=== PATIENT | male | born 1980 | race Caucasian/White ===

== ENCOUNTER 2018-10-05 19:07 | Inpatient (IN) | payer OTHER ==
[~2018-10-05] VITALS: Ht 172.7 cm; Wt 77.8 kg
--- NOTE | 2018-10-06 00:34 | NUR ---
GOT A CALL FROM RADIOLOGY AND WAS INFORMED THAT PER DR. ALIYAH DE JESUS THE NG TUBE HAS GOOD PLACEMENT AND READY FOR USE.
--- NOTE | 2018-10-06 01:45 | NUR ---
PATIENT'S BROTHER IS HERE DROPPING OFF SOME CLOTHES. PATIENT NG TO ILWS WITH SLIGHT CLEAR DRAINAGE. PATIENT VOIDED 400MLS PER URINAL. ABD TENDER AND DISTENDED. RARE BOWEL TONES. CONFIRMED PLACEMENT OF NG WITH SYRINGE AND SMALL AMOUNT OF AIR. ABD PAIN 4/10 AND GIVEN 0.5MG DILAUDID IV. BOLUS IS DONE AND D5NS RUNNING AT 125MLS/HR NOW. CALL LIGHT IN REACH. BED ALARM ON.
--- NOTE | 2018-10-06 03:05 | NUR ---
PATIENT SAYS PAIN IS UNDER CONTROL AND HE HAS BEEN ABLE TO GET SOME SLEEP. CALL LIGHT IN REACH. VS STABLE.
--- NOTE | 2018-10-06 05:32 | NUR ---
PATIENT REMAINS CONNECTED TO ILWS PER NG TUBE. VERY LITTLE CLEARISH DRAINAGE FROM NG. PATIENT HAS BEEN FEELING BETTER. PAIN IN THE ABD HAS NOT BEEN ABOVE A 4/10. DID GET 0.5MG IV DILAUDID FOR THAT ABD PAIN WHICH ALLOWED PATIENT TO SLEEP. BROTHER DROPPED OF PERSONAL ITEMS. PATIENT USING URINAL. IV INFUSING AND WNL. SCD'S PLACED. PATIENT RESTING QUIRTLY EYES CLOSED CALL LIGHT IN REACH. O2 SATS CURRENTLY 95% ON RA WITH A HR=70.
--- NOTE | 2018-10-06 07:43 | NUR ---
Pt sleeping at this time, resp even and non labored. Pt appears comfortable, no s/s of distress noted. Personal supplies and call light within reach.
--- NOTE | 2018-10-06 09:59 | NUR ---
PATIENT RESTING IN BED. WARM WASHCLOTH OFFERED. CALL LIGHT IN REACH. NO FURTHER NEEDS AT THIS TIME.
[2018-10-06] MEDS ORDERED: KEFLEX500 MG PO (12:08)
--- NOTE | 2018-10-06 13:09 | NUR ---
[facility]ED [facility] NOTES TO [facility] INCLUDING FACE SHEET, ER NOTES AND SUMMARY, H AND P, PROG NOTE. RECIEVED FAX CONFIRMATION. TALKED WITH JERRY CASE MANAGEMENT AT [facility].
--- NOTE | 2018-10-06 13:50 | NUR ---
PT FAST ASLEEP. WILL CHECK BACK AGAIN
--- NOTE | 2018-10-06 14:35 | NUR ---
AGAIN TALKING TO THE [facility] ATTEMPTING TO GET A HOLD OF THE PT PCP--LILY GARZA SPLICER OPERATOR. TOLD THAT SHE IS OUT ON [facility] LE[facility] AND DR SUAREZ OFFICE COVERING. GOT TRANSFERED TO THAT OFFICE, TALKED WITH ESTEFANIA AND SHE WAS ABLE TO GET ME HOOKED UP WITH ELIZABETH DAN RN, AT DR SUAREZ OFFICE. ON THE PHONE WITH HER FOR 40 MINUTES AND BASICALLY WHAT SHE SAID SPEAKING THE RN FOR THE CONSULT MANAGEMENT TEAM THAT THEY CANNOT PREAUTHORIZE PAYMENT FOR THIS SURGERY, HOWEVER IF IT WERE EMERGENT OR LIFE THREATENING SHE SAID TO TELL THE VET TO HAVE THE SURGERY AND WORRY ABOUT IT LATER. SHE STATED THAT THE VET IS 30% SERVICE CONNECTED POSS RELATED TO THIS WITH IRRITABLE BOWELS. SHE SUGGESTED THE PT SHOULD/ COULD REQUEST A TRANSFER TO [facility] FOR THE SURG--IF THEY HAVE NO BED OR WON'T TAKE HIM THEN TO HAVE SURG HERE AND MORE THAN LIKELY THEY WOULD COVER THE COST OF IT. [address] ROMERO AND EXPLAINED THIS TO HIM.
--- NOTE | 2018-10-06 15:40 | NUR ---
ADMIN DILAUDID 0.5MG IVP FOR 5/10 ABD PAIN.
--- NOTE | 2018-10-06 16:36 | NUR ---
TALKED WITH PT ABOUT THE STATEMENT HE MADE TO DR ROMERO THAT SURGERY WOULD HAVE TO BE AUTHORIZED THROUGH THE [facility]. EXPLAINED THE CONVERSATION I HAD WITH THE [facility], ELIZABETH DAN RN CONSULT MANAGEMENT TEAM, AND THAT SHE HAD LEARNED THAT EVEN GOING THROUGH DR AGEE, THE [facility] WILL NOT PREAUTH PROCEDURES WHEN YOUR AN INPT. I EXPLAINED THAT THEY SAID HE COULD HAVE THE SURG HERE BUT THEY COULDN'T GUARANTEE PAYMENT FOR IT. ALSO SUGGESTED BY ELIZABETH THAT THE PT REQUEST A TRANSFER TO [facility] FOR THE SURGERY. IF BED SPACE AVAILABLE HE COULD GO THERE, OR IF NOT HE COULD STAY HERE AND HAVE THE SURGERY, BUT SHE STILL COULD NOT GUARANTY VA PAYMENT. HE SAID HE WOULD THINK ABOUT IT AND TALK WITH DR ROMERO WHEN HE COMES IN TO SEE HIM. TOLD PT IF HE HAS QUESTIONS HE COULD JUST ASK FOR DISCHARGE PLANNING.
--- NOTE | 2018-10-06 17:01 | NUR ---
PT A&OX3. RA. CHLOE QUIROGA. [id number]. SURGERY PLANNED FOR TOMORROW AM AROUND 10. DILAUDID 0.5MG IVP FOR PAIN. AMBULATED INDEPENDENT.
--- NOTE | 2018-10-06 18:07 | NUR ---
ADMIN DILAUDID 0.5MG IVP FOR REPORTS OF 5/10 ABD PAIN.
--- NOTE | 2018-10-06 19:54 | NUR ---
PATIENT RESTING QUIETLY IN SEMI-FOWLERS POSITION. NG TUBE STILL TO LWIS.EYES CLOSED, RESPIRATIONS REGULAR AND EVEN. CALL LIGHT IN REACH.
--- NOTE | 2018-10-06 21:24 | OR ---
[facility] [address] [place], [place] [address] Signed DATE OF OPERATION: 10/05/2018 SURGEON: Tae Romero MD PREOPERATIVE DIAGNOSIS: Advanced small bowel obstruction, need for physician placed nasogastric tube. POSTOPERATIVE DIAGNOSIS: Advanced small bowel obstruction, need for physician placed nasogastric tube. PROCEDURE PERFORMED: physician required placement of right nasogastric tube for decompression of stomach. ANESTHESIA: Topical lidocaine jelly. INDICATIONS: This 38-year-old white man has recurrent small bowel obstruction and massively distended stomach, at least the size of his liver. He has had difficulty with nasogastric tube placement in the past apparently. On that basis, a physician-directed placement of a tube is recommended. FINDINGS: The choanal aperture was somewhat narrow, but was negotiated with time and patience. The tube was placed without problem into the stomach. Immediately prior to placement of tube, he had regurgitation of 1.4 L of gastric contents. The nasogastric tube was functional at conclusion of its placement and chest x-ray confirmed this tube to be in the stomach. DESCRIPTION OF PROCEDURE: In the upright position with the patient relaxed, a 16-Macedonian nasogastric tube was gently curved at the tip and application of lidocaine jelly undertaken. Passage of the tube into the choanal aperture showed resistance. With a considerable amount of patience and care, ultimately this could be negotiated passing the tube beyond the soft palate. The patient was instructed to hold a mouthful of water through the straw and as instructed, when swallowing the tube was passed further. Several further swallows were undertaken to guide the nasogastric tube atraumatically into the stomach. Aspiration of the stomach once tube was at the predetermined marker showed some gastric contents. This was secured in place with care taken to avoid excessive alar pressure on the tube. A postprocedure Electronically Signed By: TAE ROMERO MD 10/06/18 2124 PATIENT NAME: ESTEPHANIA MERCHANT OPERATIVE REPORT DATE OF : 80 REPORT #: [id number] PHYSICIAN: TAE ROMERO MD PCP: LILY GARZA REPORT IS CONFIDENTIAL AND NOT TO BE RELEASED WITHOUT AUTHORIZATION [address] [address] Signed chest x-ray confirmed the tube to be in the stomach. MD DEREK Carrillo/AIDAN /[id number] Copies: ~ Electronically Signed By: TAE ROMERO MD 10/06/18 2124 PATIENT NAME: ESTEPHANIA MERCHANT OPERATIVE REPORT DATE OF : 80 REPORT #: [id number] PHYSICIAN: TAE ROMERO MD PCP: LIYL GARZA REPORT IS CONFIDENTIAL AND NOT TO BE RELEASED WITHOUT AUTHORIZATION
--- NOTE | 2018-10-06 21:24 | HP ---
[facility] [address] [place], [place] [address] Signed ADMISSION DATE: 10/05/2018 REASON FOR ADMISSION: Recurrent small bowel obstruction. HISTORY OF PRESENT ILLNESS: This 38-year-old white man is in [employer] and [place] [employer] [place] he lives in [place]. He presented to the emergency room with abdominal pain, distention, and findings consistent with recurrent bowel obstruction. His history goes back to about 2006 at which time he underwent Meckel diverticulectomy by laparoscopic technique at the [facility] in [place]. He said the [facility] professor was the operating surgeon. Within the 1st year, he had recurrent problems of abdominal pain, distention, and so forth. By 2010, he had an episode of bowel obstruction once again for which an exploration was undertaken for adhesion, but no adhesions were identified. In August of this year, he was noted to have abdominal pain and distention and bowel obstruction and was admitted at [facility] in [place], where he underwent nasogastric tube decompression for approximately 4 days with ultimately spontaneous recovery of the bowel obstruction. The patient had his images from obstruction reviewed apparently at the [facility] in [place] and he tells me the watcher lookout tower happened to call him today upon review of his situation recommending a MRI enterography. He presented today with his distention and a CT scan was performed, which shows small bowel obstruction and markedly distended stomach and obstruction appears to be at the anastomotic area, where multiple flako are noted. He is admitted for further evaluation and care noting an elevated white count greater than 14,000. PAST MEDICAL HISTORY: Significant only for ankle surgery in the past with metal plating. MEDICATIONS: The patient takes no medications on a routine basis. ALLERGIES: There are no known drug allergies. Electronically Signed By: TAE ROMERO MD 10/06/18 2124 PATIENT NAME: ESTEPHANIA MERCHANT HISTORY AND PHYSICAL DATE OF : 80 REPORT #: [id number] PHYSICIAN: TAE ROMERO MD PCP: LILY GARZA REPORT IS CONFIDENTIAL AND NOT TO BE RELEASED WITHOUT AUTHORIZATION [facility] [address] [place] [id number] Signed SOCIAL HISTORY: Though he works in [place], he lives in [place]. He is single. He has no children. 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 REVIEW OF SYSTEMS: He denies any shortness of breath or chest pain. He has had no dysphagia or dysuria. Denies any hematemesis or blood per rectum. PHYSICAL EXAMINATION: GENERAL: Well-developed, well-nourished white man, who does not look systemically toxic. HEENT: Mucous membranes are quite dry. NECK: Trachea is midline. CHEST: Shows normal respiratory excursion without tachypnea. HEART: Regular without murmur. ABDOMEN: Distended, but not particularly tender. EXTREMITIES: Show no clubbing, cyanosis, or edema. LABORATORY STUDIES: Show a white count of 14.4, hematocrit of 46.6, platelets 290,000, neutrophils 86%. Chem profile shows normal electrolytes, potassium is 4.1, bicarb is 24, glucose 100. Bilirubin 0.5, liver enzymes normal, lipase 22. Urinalysis is pending, receiving in lab. Plain abdominal x-ray performed at 2000 hours shows possible bowel obstruction. Subsequent CT scan of abdomen and pelvis shows small bowel obstruction and distal small bowel anastomosis. ASSESSMENT AND PLAN: The patient has small bowel obstruction, which may or may not be nearly complete. He has elevated white count, but no actual tenderness or sign of toxicity. He certainly has dehydration and 3rd space losses and fluid resuscitation is needed. I have recommended nasogastric tube decompression as well though he dreads the concept based on his prior experience with it. I will personally pass the tube myself, as I think I can do this painlessly and with good effect. It is highly probable in my opinion that he has had recurrent bowel obstruction related to the anastomosis, essentially since beginning of the operation. Since a laparoscopic approach to his Meckel diverticulectomy was undertaken, it is uncertain if he had simply Meckel diverticulectomy proper or segmental resection with [id number] functional end-to-end anastomosis. Given the notable flako at the anastomotic line, I suspect the latter though either is possible. This recurrent obstructive process has been Electronically Signed By: TAE ROMERO MD 10/06/182123 PATIENT NAME: ESTEPHANIA MERCHANT HISTORY AND PHYSICAL DATE OF : 80 REPORT #: [id number] PHYSICIAN: TAE ROMERO MD PCP: LILY GARZA REPORT IS CONFIDENTIAL AND NOT TO BE RELEASED WITHOUT AUTHORIZATION [facility] [address] [place], [place] [address] Signed chronic and recurrent for many years, though he has had a few years of cessation of the problem, and it is likely a definitive solution to this problem would be necessary including segmental resection and probable end-to-end anastomosis though that would remain to be determined. I will try to get operative reports to better characterize his prior operations. In the meantime, we will plan for surgeon small bowel follow-through via the nasogastric tube tomorrow most likely depending on his clinical response to decompression fluid and so on. MD DEREK Carrillo/AIDAN /[id number] Copies: ~ Electronically Signed By: TAE ROMERO MD 10/06/18 2124 PATIENT NAME: ESTEPHANIA MERCHANT HISTORY AND PHYSICAL DATE OF : [birth year] REPORT #: [id number] PHYSICIAN: TAE ROMERO MD PCP: LILY GARZA REPORT IS CONFIDENTIAL AND NOT TO BE RELEASED WITHOUT AUTHORIZATION
--- NOTE | 2018-10-06 22:10 | NUR ---
PATIENT HAS C/O 5/10 ABD PAIN AND GIVEN 0.5MG IV DILAUDID SIVP.
--- NOTE | 2018-10-07 | NUR ---
PATIENT RESTING QUIETLY, EYES CLOSED, RESPIRATIONS REGULAR AND EVEN IN SEMI-FOWLERS POSITION. CALL LIGHT IN REACH. PATIENT APPEARS TO BE IN NO DISTRESS.
--- NOTE | 2018-10-07 02:00 | NUR ---
PATIENT RESTING QUIETLY, SEMI-FOWLERS PSITION. NG STILL SECURE IN PLACE TO LWIS. PATIENT'S EYES ARE CLOSED AND RESPIRATIONS ARE REGULAR AND EVEN. CALL LIGHT IN REACH.
--- NOTE | 2018-10-07 04:00 | NUR ---
PATIENT CALLED HAVING C/O 5/10 ABD PAIN AND NAUSEA. 12.5MG IV PHENERGAN GIVEN ON THE PUMP IN 20MLS NS AND 0.5MG DILAUDID GIVEN SIVP.
--- NOTE | 2018-10-07 05:23 | NUR ---
PATIENT RESTING QUIETLY NOW, EYES CLOSED, RESPIRATIONS REGUULAR AND EVEN, NO MORE C/O NAUSEA OR PAIN AT THIS TIME. NG TUBE STILL TO LOW WALL INTERMITTENT SUCTION WITH VERY LITTLE CLEARISH WHITE RETURN TO THE SUCTION CANISTER. IV INFUSING AND IV SITE WNL. PATIENT SAID EARLIER HE REALLY DID NOT WANT TO HAVE SURGERY TODAY UNTIL HE COULD SPEAK TO HIS GASTROINTEROLOGIST A DR.LACY Bennett AT THE [facility] AND TO TEAM JESÚSRY THAT TAKES CARE OF HIS MEDICAL NEEDS AT [facility]. PATIENT HAS BOWEL TONES NOW AND SAYS HE IS PASSING GAS, EVEN THOUGH HE HAS TAKEN NOTHING BY MOUTH AND IS NOW NPO SINCE MIDNIGHT POSSIBLE SURGERY TODAY.
--- NOTE | 2018-10-07 07:38 | NUR ---
0715: Bedside report recieved from Lonnie ROCHA. Pt laying in his bed and he states he is doing ok and is not in the need for anything. I asked the pt about surgery and he confirmed with me that he is not having surgery this morning per his request. The OR crew was called by the charge nurse and it was confirmed that they are aware of this.
--- NOTE | 2018-10-07 08:22 | NUR ---
TALKED WITH JERRY FROM [facility] REGARDING PT TRANSFER TO ANOTHER [facility] PER DR ROMERO REQUEST, SHE STATES HER OFFICE WILL WORK ON THE TRANSFER. FAXED UPDATED CLINICALS INCLUDING FACE SHEET, PROG NOTE, LABS, AND MED LIST.
--- NOTE | 2018-10-07 09:13 | NUR ---
RECEIVED A PHONE CALL FROM JERRY AT THE [facility] IN [place] REGARDING PT BEING TRANSFERRED FOR SURGICAL PROCEDURE, SHE STATES THAT THERE ARE NO BEDS AVAILABLE AT [facility], [address] [facility] BUT THEY ARE FILLING THAT BED AND [facility] HAVE NO BEDS AVAILABLE EITHER. HER RECOMMENDATION WAS TO HAVE THE PT IF NEEDED TO GO AHEAD AND HAVE THE SURGERY. TALKED WITH PT REGARDING THIS AND HE STATED HE JUST GOT OFF THE PHONE WITH HIS GI DR AND SHE IS RECOMMENDING TO THE PT TO HAVE A MRI-SPECIFIC FOR THIS PER THE GI DR. I TOLD HIM HE WOULD HAVE TO DISCUSS THIS WITH DR ROMERO AND TO MAKE HIS DECISION FROM THERE.
--- NOTE | 2018-10-07 09:18 | NUR ---
THE PT JUST SPOKE WITH ROSSY ROCHA IN REGARDS TO HER CONVERSATION SHE HAD WITH THE [facility]. PT STATES HIS PAIN LEVEL IS ACCEPTABLE AT THIS TIME AND HE HAS SOME MILD NAUSEA ALL THE TIME RELATED TO HAVING AN NG. NG TO LIWS AND IS DRAINING A SMALL AMOUNT OF CLEAR GREEN TINTED DRAINAGE. ESTEPHANIA DENIES ANY OTHER PROBLEMS AT THIS TIME.
--- NOTE | 2018-10-07 09:44 | NUR ---
TALKED TO DR ROMERO AND TOLD HIM MY FINDINGS OF THIS AM AND THAT I DISCUSSED THIS WITH THE PT. HE SAID HE WOULD DEAL WITH IT. I KEEP RECEIVING NOTICE FROM [facility] FAX THAT THE LINE IS BUSY WILL ATTEMPT TO FAX UPDATED CHART NOTES AGAIN.
--- NOTE | 2018-10-07 09:47 | NUR ---
RECEIVED NOTIFICATION THAT THE UPDATED NOTES TO THE VA FINALLY WENT THROUGH. RECEIVED THE FAX CONFIRMATION.
--- NOTE | 2018-10-07 10:33 | NUR ---
ESTEPHANIA JUST SPOKE WITH DR ROMERO AND STATES HE IS STILL UNSURE IF HE IS GOING TO HAVE SURGERY OR NOT AT THIS TIME. HE STATES THAT HE IS STILL THINKING ABOUT WHAT HE WANT'S TO DO. HE STATES HE HAS ABD PAIN RATED AT A 4/10 AND WAS MEDICATED ORDERED, SEE EMAR.
--- NOTE | 2018-10-07 11:15 | NUR ---
Upon checking up on the pt he states that he is doing okay. He is on the phone at this time so I will check back on him shortly.
--- NOTE | 2018-10-07 11:50 | NUR ---
Pt sleeping at this time.
--- NOTE | 2018-10-07 12:35 | NUR ---
Pt resting in his bed. He was encouraged to walk and he states that he will later in the day. He denies nausea at this time and remains on LIWS, bowel tones are active and he states he is passing gas. He rates his pain at a 1-2/10 and states it is acceptable.
--- NOTE | 2018-10-07 13:22 | NUR ---
Michael ambulated in the halls with nursing staff and walked 5 laps and he tolerated the walk well. Pt back to bed and his Cheri suction tube attachment device for his NG was replaced as it was started to lift up on the edges. Pt denies any new problems at this time.
--- NOTE | 2018-10-07 13:57 | NUR ---
PT ALERT, ORIENTED AND NOTICED NG IS DRAINING SMALL ABOUT OF GREEN LIQUID. PT VISITED WITH ME FOR A MOMENT, AND THEN MUST HAVE FELT COMFORTABLE ENOUGH TO SHARE WITH ME THE DILEMA HE FEELS HE IS IN. ACCORDING TO PT, DR ROMERO HAS RECOMMENDED SURGERY TO PT. DR NIXON CONSULTED PT'S [employer]INE[employer] SALES, AND ALSO TALKED TO PT. PT SO FAR HAS REFUSED SURGERY, AND FEELS THAT THE POSSIBLE AFTER EFFECTS OUT WEIGH THE BENEFITS OF SURGERY. HE APPARENTLY HAS BEEN THROUGH NUMEROUS HOPTILALIZATIONS, NG TUBES AND SURGERIES. HAD GOOD DEBRIEFING WITH PT, HE REQUESTED PRAYER. WILL FOLLOW NEEDED
--- NOTE | 2018-10-07 15:29 | NUR ---
PATIENT DID 5 LAPS AROUND MED/SURG. HE WANTS TO WALK MORE.
--- NOTE | 2018-10-07 18:12 | NUR ---
Pt resting in bed, he states he is doing "alright". NGT continues at [facility] and is putting out a scant amount of light green colored drainage this shift. SCD's are on and running.
--- NOTE | 2018-10-07 18:55 | NUR ---
Pt refused surgery for his SBO this am and is now undecided if he is going to go ahead with the surgery or not. The pt scheduled for a SBFT tomorrow at 0800. Pt remains of LIWS with his NGT which has put out 50 ml this shift and is marked on the unit. His pain has been well controled with one dose of Dilaudid this shift. ABD sounds are active and he states his is passing gas. He is NPO other than limited sips of water and ice chips.
--- NOTE | 2018-10-07 19:30 | NUR ---
SHIFT REPORT RECEIVED FROM RICHIE BANKS AT BEDSIDE. PT RESTING IN BED, EYES OPEN, RR WNL. NG TUBE TO WLIS, SECUREMENT DEVICE IN PLACE. PT APPEARS COMFORTABLE, DENIES NEEDS. CALL LIGHT IN REACH.
--- NOTE | 2018-10-07 20:30 | NUR ---
CHARGE NURSE ROUNDING NOTE: PT WALKING HALLWAYS 5X UP AND DOWN NURSING STATION AND BACK, NO C/O PAIN AT THIS TIME. BACK TO ROOM. NGT R NARE TO LIWS. NO N/V, TOLERATED WELL, NO REQUESTS
--- NOTE | 2018-10-07 22:20 | NUR ---
ASSESSMENT COMPLETE, SCHEDULED MEDICATIONS ADMINISTERED (SEE EMAR). PT RESTING IN BED, ON RA. VSS. NG TUBE TO WLIS, NASAL SECUREMENT DEVICE IN PLACE. PT DENIES NAUSEA, REPORTS 4/10 PAIN. WILL ADMINISTER PRN PAIN MEDICATION PER PT REQUEST. IV FLUIDS INFUSING PER MD ORDERS, IV SITE WNL. PT DENIES ADDITIONAL NEEDS. CALL LIGHT IN REACH.
--- NOTE | 2018-10-07 23:40 | NUR ---
REPORT GIVEN TO ANASTACIA RN AT BEDSIDE. ANASTACIA TO TAKE OVER CARE OF PT FOR REMAINING OF SHIFT. ALL QUESTIONS ANSWERED.
--- NOTE | 2018-10-07 23:40 | NUR ---
TAKEN REPORT ANIKA MOCTEZUMA RN. PATIENT GIVEN 0.5MG IV DILAUDID SIVP FOR ABD PAIN 07/21. PATIENT DENIES NAUSEA AND IS PASSING GAS. JUST VOIDED 500MLS PER URINAL. ASCULTATION OF NG TUBE PLACEMENT HEARD IN THE REGION OF THE STOMACH WITH 30MLS AIR INJECTED AND HOKED BACK TO ILWS WHICH IS SLIGHTLY GREEN IN COLOR. IV INFUSINF AND WNL. PATIENT NOW RESTING ON HIS RIGHT SIDE, EYES CLOSED, CALL LIGHT IN REACH. PATIENT HAS STILL NOT TAKEN ANYTHING PO. NO OTHER NEEDS AT THIS TME. LIGHTS TURNED BACK DOWN.
--- NOTE | 2018-10-08 02:01 | NUR ---
NEW BAG OF FLUIDS HUNG AND INFUSING PER MD ORDERS. PUMP CLEARED. PRIMARY RN ANASTACIA AWARE.
--- NOTE | 2018-10-08 04:10 | NUR ---
PATIENT RESTING QUIETLY ON HIS RIGHT SIDE, NG IN PLACE, IV INFUSING AND WNL. EYES CLOSED RESPIRATIONS REGULAR AND EVEN. CALL LIGHT IN REACH.
--- NOTE | 2018-10-08 05:28 | NUR ---
PATIENT HAS RESTED WITH EYES CLOSED MOST OF THE NIGHT WITH REGULAR AND EVEN RESPIRATIONS. PATIENT IS CURRENTLY UP WALKING THE HALLS FOR EXERCISE. NG IN PLACE PER ASCULTATION WITH AIR. PATIENT HAS HAD A COUPLE EPISODES OF NAUSEA AND WAS MEDICATED WITH PROMETHAZINE 12.5MG IN 20MLS NS AND 0.5MG DILAUDID WHEN NEEDED FOR PAIN WHICH HAS NEVER GONE ABOVE 5/10. PATIENT WILL HAVE A SMALL BOWEL FOLLOW THOUGH TODAY AND IT IS UNDETERMINED WHETHER PATIENT WILL HAVE SURGERY TODAY OR NOT.
--- NOTE | 2018-10-08 07:30 | NUR ---
BEDSIDE REPORT RECIEVED FROM ANASTACIA ROCHA. PT LYING IN BED AND HE DENIES ANY PROBLEMS AT THIS TIME. HIS SCD'S ARE ON AND RUNNING, NGT TO LIWS AND IV OF D5LR AT 125. CALL LIGHT IS WITHIN REACH.
--- NOTE | 2018-10-08 08:06 | NUR ---
The pt has been taken from the floor by the x-ray dept for the pt to receive his SBFT. The iv has been SL and the NGT has been clamped.
--- NOTE | 2018-10-08 09:31 | NUR ---
0920: PT RETURNED TO HIS FOOM FOR THE X-RAY DEPT FOR WHICH THEY STATE HE NEEDS TO GO BACK AT 1000. THE NGT WAS LEFT CAPPED REQUESTED. VSS.
--- NOTE | 2018-10-08 09:42 | NUR ---
PT LYING IN BED WITH NO COMPLAINTS OF PAIN OR NAUSEA. HE DOES COMPLAIN THAT HE DOES NOT LIKE THE NGT HOWEVER BUT UNDERSTANDS IT PURPOSE. NGT IS CLAMPED AWAITING HIS RETURN TO THE SBFT. VSS AND NO NEW PROBLEMS AT THIS TIME.
--- NOTE | 2018-10-08 10:30 | NUR ---
PATIENT AND I WALKED EIGHT LAPS AROUND MED SURG. I ASKED HIM HOW ARE YOU FEELING AND HE SAID FINE.
--- NOTE | 2018-10-08 10:35 | NUR ---
Pt complete with his SBFT and he requested to go for a walk and is doing so with a SBA at this time. NG will be returned to suction once his walk is completed.
--- NOTE | 2018-10-08 11:09 | NUR ---
Pt's ng tube is to LIWS. He denies any pain or nausea at this time.
--- NOTE | 2018-10-08 11:14 | NUR ---
Pt states he had a normal BM which he had flushed.
--- NOTE | 2018-10-08 11:24 | NUR ---
NG suction removed as requested by x-ray. They state they will call and notify us when it can be restarted.
--- NOTE | 2018-10-08 11:54 | NUR ---
X-RAY DEPT CALLED AND THEY STATE THEY ARE COMPLETE WITH THE SBFT. NT RETURNED TO [facility]. PT DENIES ANY OTHER PROBLEMS.
--- NOTE | 2018-10-08 13:24 | NUR ---
PT SITTING IN HIS CHAIR AND STATES HE HAS NO NAUSEA OR PAIN. VSS. NG TO ALEXANDER.
--- NOTE | 2018-10-08 14:19 | NUR ---
PATIENT AMBULATING IN HALLWAY, ONE PERSON ASSISTING
--- NOTE | 2018-10-08 14:32 | NUR ---
NGT PULLED ORDERED. PT HAD A SLIGHT BLOODY NOSE IN THE RIGHT KEYS WHERE THE NGT WAS PULLED FROM. DR ROMERO TO BEDSIDE AT THIS TIME. PT GIVEN A GLASS OF ICE WATER AND A CLEAR LIQUID DIET WAS ORDERED AND THE KITCHEN WAS CALLED AND REQUESTED TO BRING ONE TO THE PT.
--- NOTE | 2018-10-08 17:05 | NUR ---
Pt resting in his bed and just finished eating/drinking his clear liquid dinner which he had about 80% of the meal. He denies any nausea of abd pain after eating.
--- NOTE | 2018-10-08 17:16 | NUR ---
PT DID WELL TODAY, HAD A SBFT AND HIS NGT WAS DC'D. DIET ADVANCED AFTER THE NGT WAS REMOVED AND HE TOLERATED A CLEAR LIQUID DIET WELL. VSS AND HE DENIES ANY PAIN OR NAUSEA SINCE THE NG WAS REMOVED AND AFTER HE ATE.
--- NOTE | 2018-10-08 18:54 | NUR ---
PT CONTINUES TO DENIE ANY ABD PAIN OR NAUSEA.
--- NOTE | 2018-10-08 18:57 | NUR ---
PATIENT SAID HE WOUULD TAKE A SHOWER TOMORROW. I SET HIM UP FOR A SHOWER IN CASE HE CHANGES HIS MIND AND WANTS TO TAKE ONE LATER TONIGHT.
--- NOTE | 2018-10-08 19:00 | NUR ---
SHIFT REPORT RECEIVED FROM DAYSILANTHONY BANKS AT BEDSIDE. PT AWAKE AND RESTING IN BED. NO NEEDS AT THIS TIME, CALL LIGHT IN REACH. PT APPEARS COMFORTABLE.
--- NOTE | 2018-10-08 21:00 | NUR ---
PT AMBULATING INDEPENDENTLY IN HALLWAY.
--- NOTE | 2018-10-08 21:31 | NUR ---
VITALS AND I&OS DONE AND CHARTED. FRESH ICE WATER GIVEN. BEDSIDE TABLE AND CALL LIGHT IN REACH. PT NEEDS NOTHING MORE AT THIS TIME.
--- NOTE | 2018-10-08 21:45 | NUR ---
ASSESSMENT COMPLETE, SCHEDULED MEDICATIONS ADMINISTERED (SEE EMAR). PT A/OX4, DENIES PAIN AND NAUSEA. VSS, PT ON RA. IV FLUIDS INFUSING PER MD ORDERS, IV SITE WNL. PT DENIES NEEDS. CALL LIGHT IN REACH.
--- NOTE | 2018-10-08 22:28 | NUR ---
PT IN BED RESTING, CHICKEN BRTH AT BEDSIDE. PT DENIES NAUSEA OR ABDOMINAL PAIN AT THIS TIME. NO NEEDS, CALL LIGHT IN REACH. IV FLUIDS INFUSING PER MD ORDERS, IV SITE WNL.
--- NOTE | 2018-10-09 00:25 | NUR ---
PT RESTING IN BED, EYES CLOSED, RR WNL. PT APPEARS COMFORTABLE, NO DISTRESS NOTED. CALL LIGHT IN REACH.
--- NOTE | 2018-10-09 02:32 | NUR ---
ASSESSMENT COMPLETE, NO NEW CONCERNS OR CHANGES. PT DROWSY FROM SLEEPING, AWAKENS EASILY. NEW BAG OF IV FLUIDS HUNG PER MD ORDERS, IV SITE WNL. PT DENIES PAIN AND NAUSEA, BOWEL TONES ACTIVE. URINAL EMPTIED, 400 MLS OUTPUT RECORDED. NO NEEDS, CALL LIGHT IN REACH.
--- NOTE | 2018-10-09 04:42 | NUR ---
PT HAD VERY UNEVENTFUL NIGHT. AMBULATED INDENPENDENTLY IN HALLWAY. A/OX4, DENIED PAIN. D5LR @100 MLS/HR, IV SITE WNL. PT DENIED NAUSEA, BOWEL TONES ACTIVE. VOIDING QS, NO BM THIS SHIFT. USES CALL LIGHT APPROPERIATELY, TENATIVE DISCHARGE TODAY.
--- NOTE | 2018-10-09 05:48 | NUR ---
PER MD ORDERS, DIET ADVANCED FROM CLEAR LIQUID TO FULL LIQUID. PT HAD NO NAUSEA OR VOMITING THIS SHIFT.
--- NOTE | 2018-10-09 05:56 | NUR ---
VITALS AND I&OS DONE AND CHARTED. GARBAGES EMPTIED. FRESH ICE WATER GIVEN. BEDSIDE TABLE AND CALL LIGHT IN REACH. PT NEEDS NOTHING MORE AT THIS TIME.
--- NOTE | 2018-10-09 07:31 | NUR ---
REPORT RECEIVED FROM AJ MOCTEZUMA. PT RESTING ON LEFT SIDE WITH EYES CLOSED. RESPIRATIONS EVEN AND UNLABORED. BED RAILS UP. CALL LIGHT WITHIN REACH. FULL LIQUID TRAY ORDERED FOR PT FOR BREAKFAST.
--- NOTE | 2018-10-09 09:14 | NUR ---
MORNING ASSESSMENT AND MEDICATIONS DUE. PT SITTING UP IN BED FINISHED WITH FULL LIQUID BREAKFAST. PT DENIES PAIN AND NAUSEA. PT REPORTS A BM YESTERDAY. PT ADVANCED TO LOW FIBER DIET PER MD ORDER. PT PLANING TO TAKE A SHOWER LATER THIS MORNING. NO ADDITIONAL REQUESTS OR COMPLAINTS. CALL LIGHT WITHIN REACH. BED RAILS UP.
--- NOTE | 2018-10-09 09:35 | NUR ---
PT CALL LIGHT ON. PT REQUESTS A SHOWER. PIV SALINE LOCKED AND COVERED FOR SHOWER. PT UP INDEPENDANTLY FOR SHOWER. PT DEMONSTRATES USE OF CALL LIGHT. NO ADDITIONAL REQUESTS OR COMPLAINTS.
--- NOTE | 2018-10-09 10:20 | NUR ---
PT FINISHED WITH SHOWER. PIV ASSESSED, WNL. IV FLUIDS RESTRATED. PT SITTING ON EDGE OF BED, WATCHING MOVIES ON PHONE. PT DENIES PAIN AND NAUSEA AND IS HOPING FOR DISCHARGE LATER TODAY. NO ADDITIONAL REQUESTS OR COMPLAINTS. CALL LIGHT WITHIN REACH.
--- NOTE | 2018-10-09 10:37 | NUR ---
PATIENT SITTING UP IN BED. I&O DONE. VITAL SIGNS DONE BY RN. CALL LIGHT WITHIN REACH. NO OTHER NEEDS AT THIS TIME
--- NOTE | 2018-10-09 13:00 | NUR ---
THIS RN TO ROOM TO CHECK ON PT. PT FINISHED WITH LUNCH AND DENIES PAIN AND NAUSEA. PT STATES HE IS READY TO GO HOME. DISCHARGE CHARGE INSTRUCTIONS REVIEWED WITH PT. PT VERBALIZES UNDERSTANDING AND STATES HIS QUESTIONS HAVE BEEN ANSWERED. PIV DC'D PER PROTOCOL. GAUZE AND COBAN APPLIED. PT UP TO DRESS SELF, PT STEADY ON FEET AND CONTINUES TO DENY PAIN AND NAUSEA. VITAL SIGNS TAKEN. PT WHEELED FROM UNIT WITH BELONGINGS. SAFE ACCESSED TO OBTAIN ADDITIONAL PERSONEL BELONGS. NO ADDITIONAL QUESITONS, CONCERNS, OR COMPLAINTS.
--- NOTE | 2018-10-09 13:24 | NUR ---
PATIENT RESTING IN BED. RN IN ROOM. VITAL SIGNS AND I&O DONE. CALL LIGHT WITHIN REACH. NO OTHER NEEDS AT THIS TIME
--- NOTE | 2018-10-10 13:33 | DS ---
[facility] [address], [place] [address] Signed ADMISSION DATE: 10/05/2018 DISCHARGE DATE: 10/09/2018 REASON FOR ADMISSION: This 38-year-old white man, he is in the [employer] [place], though he lives in [place], [place]. He presented to the emergency room with abdominal pain, distention, findings consistent with recurrent bowel obstruction. He is admitted for further evaluation and care. His prior history goes back to 2004 or 2006, at which time he had chronic abdominal pain, he was thoroughly evaluated including capsule endoscopy, which showed a Meckel diverticulum indeed the capsule was entrapped in the Meckel diverticulum. He underwent laparoscopic segmental resection of the Meckel diverticulum (presumably) and has had recurrent bouts of bowel obstruction since that time. He has gone several years without any problems, but was admitted to the hospital only 3 weeks ago to [facility] in [place] where he had a bowel obstruction, requiring nasogastric tube decompression. He ultimately had spontaneous recovery of the obstruction. The patient has been evaluated by the [facility] for this problem including the medical claims manager, Dr. Becerra, who had previously recommended an MRI enterography to better characterize the process. The patient is admitted for further evaluation and care for small-bowel obstruction. HOSPITAL COURSE: The patient was very resistent to the idea of nasogastric decompression given the difficulty he had with it previously. I placed the 16 Fr nasogastric tube myself without problem, which allowed for decompression of at least 1.5 L of gastric contents. He showed persistence of his obstruction clinically. Abdominal x-rays and so forth did show improvement. A plan for small-bowel follow-through was made, however, the radiologist was hesitant given his ongoing significant symptoms and that the CT scan showed obvious obstruction at the previous anastomotic site. On that basis, the small bowel follow-through was canceled. I was advised by Dr. Neal of the [place] system regarding the patient's eligibility for further care at this hospital. My discussion with Dr. Neal was fruitful and Dr. Neal Electronically Signed By: TAE ROMERO MD 10/10/18 1333 PATIENT NAME: ESTEPHANIA MERCHANT DISCHARGE SUMMARY DATE OF : 80 REPORT #: [id number] PHYSICIAN: TAE ROMERO MD PCP: LILY GARZA REPORT IS CONFIDENTIAL AND NOT TO BE RELEASED WITHOUT AUTHORIZATION [facility] [address] [place] [address] Signed had a good understanding of the problem and my recommendation for exploration and likely resection of the anastomotic area, which has caused recurrent problems. It was ultimately determined that there was no [facility] with the ability to take him on tranfer and on that basis a plan for surgery was outlined for October 07. The patient then refused to proceed with surgery. He spoke with his medical claims manager in [place] at the [facility] (Dr. Becerra). I subsequently spoke with Dr. Becerra and myself reviewing the case with her. She concurred that ongoing obstruction should be addressed by surgical methods if needed. The patient still refused to proceed with operative intervention. On that basis, a plan was outlined for small-bowel follow-through afterall to assess for ongoing obstruction. This was performed, which showed no complete obstruction at this point. Since the patient declined surgical intervention, the nasogastric tube was removed and a trial of clear liquids was undertaken. He tolerated this and full liquids and is anticipating a low-fiber diet for the time being. By the time of discharge, he appears to be doing well. I believe his propensity for another obstruction at the anastomotic site is high, and he understands this. It is probable that surgical intervention will one day be accepted by the patient. Most likely, this will be in the [facility], however. He is advised at discharge to avoid large fibrous food boluses in oral intake. I would not expect him to necessarily be on a low-fiber diet, long-term, nor would I advocate such a thing. However on the short-term, a low-fiber diet may be prudent. Followup plans: he will return for further evaluation and consideration to the [facility] in [place]. His primary provider is a mid-level nurse practitioner, who is now on maternity leave, but he assures me that [facility] will be familiar with his situation. I am sure that would be ongoing consultation with his medical claims manager in [place], Dr. Becerra. DISCHARGE MEDICATIONS: None. DISCHARGE DIAGNOSES: 1. Recurrent small-bowel obstruction at the site of previous small bowel anastomosis. 2. History of Meckel diverticulectomy with laparoscopic resection and anastomosis probably [id number] functional end to end ileo-ileostomy in 2004. 3. Recurrent bowel obstruction with laparoscopy showing minimal intraabdominal adhesions, some adhesions at anastomotic site. Electronically Signed By: TAE ROMERO MD 10/10/18 1333 PATIENT NAME: ESTEPHANIA MERCHANT DISCHARGE SUMMARY DATE OF : 80 REPORT #: [id number] PHYSICIAN: TAE ROMERO MD PCP: LILY GARZA REPORT IS CONFIDENTIAL AND NOT TO BE RELEASED WITHOUT AUTHORIZATION [address] [place], [place] [address] Signed 4. Recent recurrent small-bowel obstruction, treated nonoperatively at [place], [place]. MD DEREK Carrillo/AIDAN /[id number] cc: Department of Gastroenterology [place], [place] [facility] Dr. Becerra Copies: ~ Electronically Signed By: TAE ROMERO MD 10/10/18 1333 PATIENT NAME: ESTEPHANIA MERCHANTL DISCHARGE SUMMARY DATE OF : 80 REPORT #: [id number] PHYSICIAN: TAE ROMERO MD PCP: LILY GARZA REPORT IS CONFIDENTIAL AND NOT TO BE RELEASED WITHOUT AUTHORIZATION
== END 2018-10-09 13:45 | disposition home or self-care (01) | DRG 390 ==
LOC: ED 19:07 → MS 19:08 → ED 19:08 → MS 19:08
PROVIDERS: ADMIT Surgery
PROC: 0D9670Z Drainage of Stomach with Drainage Device, Via Natural or Artificial Opening (ICD-10-PCS; principal; 2018-10-05)
DX: K56.699 Other intestinal obstruction unspecified as to partial versus complete obstruction (principal); E86.0 Dehydration
CPT/HCPCS: 36415; 71045; 74018; 74022; 74177; 74250; 80053; 81001; 83690; 85025; 94760; 99285-25; J0131; J1170; J1644; J2405; J2550; J7030; J7120

== ENCOUNTER 2019-02-17 12:23 | Inpatient (IN) | payer OTHER ==
[~2019-02-17] VITALS: Ht 172.7 cm; Wt 77.8 kg
--- NOTE | ~2019-02-17 | DS ---
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 This was at [facility]. Since that time, he has had episodic bowel obstructions, all of them likely related to the anastomotic site itself. A plan for segmental resection of this abnormality was outlined by me for the next several weeks, but he presented to the emergency room and with a recurrent bowel obstruction was admitted by Dr. Tong, the on-call surgeon on February 17, again showing a small-bowel obstruction likely associated with the anastomotic area from the past. He is admitted for further evaluation and care. PHYSICAL EXAMINATION: VITAL SIGNS: At admission showed a blood pressure 142/85, heart rate 75, respiratory rate 16, temperature 98.4, O2 saturation on room air 96%. LUNGS: Clear. HEART: Regular rate and rhythm. ABDOMEN: Mildly distended, generally soft and nontender. LABORATORY DATA: His white count was 10.7, hemoglobin 16, creatinine 1.08. Liver functions normal. DIAGNOSTIC DATA: Chest x-ray showed good placement of nasogastric tube for decompression. A CT scan showed a fluid-filled stomach with distention of bowel most dominantly at the anastomosis in the right lower abdomen. HOSPITAL COURSE: The patient was admitted and given fluid resuscitation, nasogastric tube decompression by Dr. Tong. Care was transferred to my service on February 18, as the patient already had well established plan of care and was well known to me already. He did have improvement of his clinical symptoms of obstruction, but clearly was in need of surgical remedy of his obstructive process. On February 19, 2019, he underwent laparoscopic-assisted small bowel resection of the prior anastomosis. Operation consisted of laparoscopy to identify the offending segment of bowel delivery into the extraabdominal position with extension of his infraumbilical incision, resection of the obstructed segment, and end-to-end enteroenterostomy. PATIENT NAME: ESTEPHANIA MERCHANT DISCHARGE SUMMARY DATE OF : [birth year] REPORT #: [id number] PHYSICIAN: TAE ROMERO MD PCP: KYLEIGH GARZA REPORT IS CONFIDENTIAL AND NOT TO BE RELEASED WITHOUT AUTHORIZATION [facility] [address], [place] [address] Draft His postoperative course was quite unremarkable. He was begun on clear liquids on the night of operation, which he kept for 24 hours, advanced to full liquid diet and ultimately a regular diet without problem. By the time of discharge, he is ambulating well, having regular bowel movements, minimal incisional pain. He was kept in a minimal opiate approach postoperatively and discharged to home without the need for opiate pain medication. DISCHARGE MEDICATIONS: Include Tylenol 1000 mg p.o. q.6 hours p.r.n. pain #60 of 500 mg tablets, refill 1. Also, Motrin 600 mg p.o. q.6 hours p.r.n. pain, #60, refill 1. FOLLOWUP PLAN: He is to return to see me in approximately 4 weeks. 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 DISCHARGE DIAGNOSES: 1. Chronic recurrent small bowel obstruction at previous small bowel anastomotic site. 2. History of Meckel diverticulectomy in 2006 at [facility] associated with [facility] (totally laparoscopic [id number] enteroenterostomy). 3. Recurrent small bowel obstruction at anastomotic site, status post laparoscopic lysis of adhesions in 2007 without modification anastomosis. 4. Recurrent small-bowel obstruction, now status post laparoscopic-assisted extra-anatomic segmental resection of small bowel with end-to-end anastomosis. MD DEREK Carrillo/AIDAN /[id number] cc: MD Kyleigh Lovell FNP Copies: CAMERON TONG MD PATIENT NAME: ESTEPHANIA MERCHANT DISCHARGE SUMMARY DATE OF : 80 REPORT #: [id number] PHYSICIAN: TAE ROMERO MD PCP: KYLEIGH GARZA REPORT IS CONFIDENTIAL AND NOT TO BE RELEASED WITHOUT AUTHORIZATION [address] [address] Draft KYLEIGH GARZA ~ PATIENT NAME: ESTEPHANIA MERCHANT DISCHARGE SUMMARY DATE OF : [birth year] REPORT #: [id number] PHYSICIAN: TAE ROMERO MD PCP: KYLEIGH GARZA REPORT IS CONFIDENTIAL AND NOT TO BE RELEASED WITHOUT AUTHORIZATION
--- OUTSIDE RECORDS SUMMARY | ~2019-02-17 | XMS | Clinical Summary ---
Demographics + + + | Address | [address] | | | [place] [address] | + + + | Home Phone | | + + + | Preferred Language | Unknown | + + + | Marital Status | Single | + + + | Tenriism Affiliation | Unknown | + + + | Race | Unknown | + + + | Ethnic Group | Unknown | + + + Author + + + | Author | [facility] | | | and [place] | + + + | Organization | [facility] | | | and [place] | + + + | Address | Unknown | + + + | Phone | Unavailable | + + + Support + + +---------+ + | Name | Relationship | Address | Phone | + + +---------+ + | Reed Cowan | ECON | Unknown | | + + +---------+ + Care Team Providers + +------+ + | Care Assistant Strength Coach Name | Role | Phone | + +------+ + | Unknown, Doctor | PCP | | + +------+ + Allergies No Known Allergies Medications No known medications Active Problems + + + | Problem | Noted Date | + + + | Abdominal pain | 08/31/2018 | + + + | Gastroesophageal reflux disease | 08/31/2018 | + + + | Hypermetropia | 08/31/2018 | + + + | Small bowel obstruction | 08/31/2018 | + + + | Irritable bowel syndrome | 08/31/2018 | + + + | Other states following surgery of eye and adnexa | 08/31/2018 | + + + | Tear film insufficiency | 08/31/2018 | + + + | Hordeolum internum | 08/31/2018 | + + + | Closed fracture of ankle | 08/31/2018 | + + + Resolved Problems + + + + | Problem | Noted | Resolved | | | Date | Date | + + + + | Meckel's diverticulum | 09/01/19 | | | | 19 | 9 | + + + + Immunizations + + + + | Name | Dates Previously Given | Next Due | + + + + | DTP (PED) | 03/29/1985, 08/09/1981 | | + + + + | HEP B, 3 DOSE | 12/13/2002, 11/11/2002 | | | (ADULT) | | | + + + + | INFLUENZA, | 01/12/2016, 12/18/2012, 01/01/2009, | | | UNSPECIFIED | 01/27/2008, 01/31/2007 | | | FORMULATION | | | + + + + | MMR, 2 DOSE | 12/15/1991, 04/25/1981 | | | (PED/ADULT) | | | + + + + | POLIOVIRUS,OPV | 03/29/1985, 08/09/1981 | | | (LIVE) | | | + + + + | TD PF (5 LF TETANUS) | 11/13/1994 | | | (ADOL/ADULT) | | | + + + + Social History + +-------+ +--------+------+ | Tobacco Use | Types | Packs/Day | Years | Date | | | | | Used | | + +-------+ +--------+------+ | Never Smoker | | | | | + +-------+ +--------+------+ + +---+---+---+ | Smokeless Tobacco: | | | | | Never Used | | | | + +---+---+---+ + + +---------+ + | Alcohol Use | Drinks/We | oz/Week | Comments | | | ek | | | + + +---------+ + | Yes | | | rare | + + +---------+ + + + + | Sex Assigned at | Date Recorded | | | | + + + | Not on file | | + + + + + + + | Job Start Date | Occupation | Industry | + + + + | Not on file | Not on file | Not on file | + + + + + + + + | Travel History | Travel Start | Travel End | + + + + + + | No recent travel history available. | + + Last Filed Vital Signs + + + + | Vital Sign | Reading | Time Taken | + + + + | Blood Pressure | 134/79 | 09/29/20181903 PDT | + + + + | Pulse | 66 | 09/29/20181903 PDT | + + + + | Temperature | 37.2 C (99 F) | 09/29/20181903 PDT | + + + + | Respiratory Rate | 16 | 09/29/20181903 PDT | + + + + | Oxygen Saturation | 97% | 09/29/20181903 PDT | + + + + | Inhaled Oxygen | - | - | | Concentration | | | + + + + | Weight | 80 kg (176 lb 5.9 | 09/29/20181903 PDT | | | oz) | | + + + + | Height | 172.7 cm (5' 8") | 09/29/20181903 PDT | + + + + | Body Mass Index | 26.82 | 09/29/20181903 PDT | + + + + Plan of Treatment + + + + + | Health Maintenance | Due Date | Last Done | Comments | + + + + + | Vaccine: | | 11/13/1994, 03/29/1985, | | | Dtap/Tdap/Td (4 - | 9 | 08/09/1981 | | | Tdap) | | | | + + + + + | Vaccine: Influenza | | 01/12/2016, 12/18/2012, | | | (#1) | 9 | 01/01/2009, Additional history | | | | | exists | | + + + + + Results Not on filefrom Last 3 Months Insurance + +--------+ +--------+-------+---------+--------+ | Payer | Benefi | Subscriber | Effect | Phone | Address | Type | | | t Plan | ID | marshal | | | | | | / | | Dates | | | | | | Group | | | | | | + +--------+ +--------+-------+---------+--------+ | [employer] | [employer] | [id number] | | | | Indemn | | | NS | | [id number] | | | ity | | | ADMIN | | estru | | | | | | [place] | | | | | | | | SWETHA | | | | | | + +--------+ +--------+-------+---------+--------+ + +--------+ +--------+ + + | Guarantor Name | Accoun | Relation to | Date | Phone | Billing Address | | | t Type | Patient | of | | | | | | | | | | + +--------+ +--------+ + + | Michael Cowan | Person | Self [birth year] | [address] | | | al/Fam | | 1980 | [phone] | [place] | | | [place] | | | 9 (Home) | [phone] | + +--------+ +--------+ + + Advance Directives Patient has advance care planning documents, and code status on file. For more information, please contact:[facility] [place] [address] + + + + + | Code Status | Date | Date | Comments | | | Activated | Inactivated | | + + + + + | Full Code | 09/01/2018 | 09/03/2018 | | | | 8:34 | 18:56 | | + + + + +
--- OUTSIDE RECORDS SUMMARY | ~2019-02-17 | XMS | Clinical Summary ---
Demographics + + + | Address | [address] | | | [place] [address] | + + + | Home Phone | | + + + | Preferred Language | Unknown | + + + | Marital Status | Single | + + + | Hinduism Affiliation | Unknown | + + + | Race | Unknown | + + + | Ethnic Group | Unknown | + + + Author + + + | Author | [facility] | | | and [place] | + + + | Organization | [facility] | | | [...] Team Providers + +------+ + | Care Gill Net Stringer Name | Role | Phone | + [...] +--------+-------+---------+--------+ | [employer] | [place] | [id number] | | | | Indemn | | [...] [place] | | | 9 (Home) | [phone] | + +--------+ +--------+ + + Advance Directives Patient has advance care planning documents, and code status on file. For more information, please contact:[facility] [place] [address] + + + + + | Code Status | Date | Date | Comments | | | Activated | Inactivated | | + + + + + | Full Code | 09/01/2018 | 09/03/2018 | | | | 8:34 | 18:56 | | + + + + +
--- OUTSIDE RECORDS SUMMARY | ~2019-02-17 | XMS | Clinical Summary ---
Demographics + + + | Address | [address] | | | [place] [address] | + + + | Home Phone | | + + + | Preferred Language | Unknown | + + + | Marital Status | Single | + + + | Evangelical Affiliation | Unknown | + + + | Race | Unknown | + + + | Ethnic Group | Unknown | + + + Author + + + | Author | [facility] | | | and [place] | + + + | Organization | [facility] | | | [...] Team Providers + +------+ + | Care Investigator Utility Bill Complaints Name | Role | Phone | + [...] +--------+-------+---------+--------+ | [employer] | VETERA | [phone] | | | | Indemn | | [...] armani | | | 9 (Home) | [phone] | + +--------+ +--------+ + + Advance Directives Patient has advance care planning documents, and code status on file. For more information, please contact:[facility] [place] [address] + + + + + | Code Status | Date | Date | Comments | | | Activated | Inactivated | | + + + + + | Full Code | 09/01/2018 | 09/03/2018 | | | | 8:34 | 18:56 | | + + + + +
[~2019-02-17 12:23] MED LIST: KEFLEX500 MG PO
--- NOTE | 2019-02-17 16:30 | NUR ---
PATIENT ARRIVES TO UNIT VIA HOSPITAL BED. PATIENT INDEPENDENTLY ABLE TO TRANSFER TO NEW HOSPITAL BED. ASSESSMENT COMPLETE, VITALS TAKEN. NG TUBE CONNECTED TO LIWS. LR RUNNING AT 125 MLS/HR. ABDOMEN IS DISTENDED, BOWEL TONES HYPOACTIVE, TENDERNESS WITH PALPATION. 200 MLS OF BROWN EMESIS DRAINING FROM NG TUBE. STATUS IS NPO. PATIENT REPORTS PAIN OF 4/10, PRN PAIN MEDICATION PROVIDED. DENIES FURTHER NEEDS AT THIS TIME, CALL LIGHT WITHIN REACH.
--- NOTE | 2019-02-17 17:08 | NUR ---
Spoke with Michael, long history of bowel issues since 2003 while in [place]. SBO in September. Works for [employer] and is in the [employer] currently. Staying with his dad while he remodels his home. Uncomfortable now with abd pain and NG tube. Rn in room assisting pt. Pt stating he wants surgery as he is tired of these issues. Encouraged to speak with Dr. Proctor.
--- NOTE | 2019-02-17 17:17 | NUR ---
MED REC COMPLETE
--- NOTE | 2019-02-17 18:26 | NUR ---
PATIENT ARRIVES TO UNIT VIA HOSPITAL BED AT 1630. NG TUBE IN PLACE, DRAINING LIGHT BROWN EMESIS. DISTENSION NOTED IN ABDOMEN WITH TENDERNESS IN LRQ ON PALPATION. HYPOACTIVE BOWEL TONES. NG TUBE ON LIWS. PRN PAIN MEDICATION GIVEN FOR PAIN OF 4/10. LR RUNNING AT 125 MLS/HR. PRN ZOFRAN AVAILABLE. POC TO MANAGE PAIN AND RUN LR UNTIL DR. TONG CONSULTS IN THE MORNING.
--- NOTE | 2019-02-17 18:30 | NUR ---
PATIENT SLEEPING IN BED. CALL LIGHT WITHIN REACH.
--- NOTE | 2019-02-17 19:16 | NUR ---
RECEIVED REPORT FROM AJ AGUIRRE. pt RESTING IN BED. DENIES NAUSEA A THIS TIME. STATED HIS PAIN "IS OKAY" WHITEBOARD UPDATED. NG TO LIS. CALL LIGHT WITHIN REACH.
--- NOTE | 2019-02-17 20:00 | NUR ---
ORDERS TO ADVANCE NG TUBE, COMPLETED PER ORDER, CHEST XRAY ORDERED AND COMPLETED. pt REPORTED 5/10 PAIN REQUESTED PRN PAIN MEDS GIVEN SEE JUN. URINAL PROVIDED. pt ON PHONE. CALL LIGHT WITHIN REACH.
--- NOTE | 2019-02-17 21:52 | NUR ---
VITALS AND I&OS DONE AND CHARTED. BEDSIDE TABLE AND CALL LIGHT IN REACH. PT NEEDS NOTHING AT THIS TIME.
--- NOTE | 2019-02-17 23:20 | NUR ---
ROUNDED ON pt. RESTING WITH EYES CLOSED, RESPIRATIONS REGULAR AND UNLABORED. CALL LIGHT WITHIN REACH.
--- NOTE | 2019-02-18 02:00 | NUR ---
CALL LIGHT ON. REQUESTED PAIN MEDICATION FOR 5/10 PAIN, GIVEN SEE JUN. NG TUBE FLUSHED. ASSESSMENT DONE. CALL LIGHT WITHIN REACH.
--- NOTE | 2019-02-18 04:24 | NUR ---
ROUNDED ON pt. RESTING WITH EYES CLOSED, RESPIRATIONS REGULAR AND UNLABORED. CALL LIGHT WITHIN REACH.
--- NOTE | 2019-02-18 05:53 | CONS ---
[facility] [address], [place] [address] Signed DATE OF CONSULTATION: 02/17/2019 CHIEF COMPLAINT: Nausea and vomiting. HISTORY OF PRESENT ILLNESS: Estephania is a 39-year-old gentleman, who had undergone extensive evaluation back in 2005 for abdominal pain. He ended up with a capsule endoscopy with Dr. Marcel Swanson in 2006. The capsule actually caught up in a diverticulum in his ileum. 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 He underwent a laparoscopic resection with the [facility] in 2006. He said he had had trouble with it following the surgery and by 2007 he underwent a diagnostic laparoscopy with minimal lysis of adhesions also at the [facility] and also at the [facility] in [place]. He has continued to have recurrent admissions with ongoing high-grade partial small-bowel obstructions associated with the anastomosis. Most recently in September of this year, he was admitted to our hospital and went through a similar scenario. He was under the impression he might undergo an MRI enterography with his automatic blocker through the [facility]. Consequently, he declined surgery, but then later did not follow up for elective surgery. 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 He is well aware that he has had another bowel obstruction. He was seen by our ER physician, Dr. Kaden Mulligan. He was not particularly ill or toxic. White count was 10.[address] scan showed his fluid-filled dilated stomach and small bowel all the way down the anastomosis and then beyond the anastomotic flako it is completely decompressed. The bowel wall next to the anastomosis is quite thickened. The dilated bowel is about 35 mm in diameter. Consequently, he had an NG tube placed and a followup chest x-ray did show the NG tube. I was asked to admit him as a general surgeon on-call. In the meantime, he has received IV fluids and pain control and overall is doing well. PAST MEDICAL HISTORY: Meckel diverticulum, right ankle fracture in 2009 requiring plate and multiple screws. PAST SURGICAL HISTORY: Includes the laparoscopic small bowel resection for the Meckel diverticulum in 2006 with the [facility] in [place]. He then underwent laparoscopic lysis of adhesions in 2007 with the [facility]. He has also had right ankle fracture repair with multiple plates and screws in 2009. SOCIAL HISTORY: He does not smoke or drink. He is single and has no children. 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 His father is at [phone]. They both live in [place], [place]. Kyleigh Coe is his nurse practitioner with the [employer] Electronically Signed By: CAMERON TONG MD 02/18/19 0553 PATIENT NAME: ESTEPHANIA MERCHANT CONSULTATION DATE OF : 80 REPORT #: [id number] PHYSICIAN: CAMERON TONG MD PCP: KYLEIGH COE CHISEL MORTISER OPERATOR REPORT IS CONFIDENTIAL AND NOT TO BE RELEASED WITHOUT AUTHORIZATION [facility] [address], [place] [address] Signed Medical Center in [place], [place]. Dr. Marcel Carter is his automatic blocker, also in [place], [place]. FAMILY HISTORY: He says everyone in family is healthy. REVIEW OF SYSTEMS: He had 10 systems reviewed and he discussed with me the right ankle fracture. ALLERGIES: None. MEDICATIONS: None. PHYSICAL EXAMINATION: VITAL SIGNS: Blood pressure 142/85, his heart rate 75, his respiratory rate 16, his temperature is 98.4. He is 96% on room air. He is 5 feet 8 inches and 77 kg. GENERAL: Estephania is a 39-year-old young man, lying supine in his hospital bed. He has an NG tube to suction and it shows a turbid clear gastric fluid. He does not appear systemically ill or toxic. LUNGS: Clear to auscultation bilaterally. HEART: Regular rate and rhythm. ABDOMEN: Mildly distended, generally soft and nontender. I can see his supraumbilical trocar site, but because of all the hair I cannot find his 5 mm trocar sites, apparently one is somewhere near the suprapubic area and he thinks the other one might be in the left upper quadrant. LABORATORY DATA: His white blood cell count 10.7, his hemoglobin is 16, neutrophils 80, BUN 15, creatinine 1.08. Liver function tests are negative. Albumin is 4.6. DIAGNOSTIC STUDIES: The chest x-ray shows clear lungs with an NG tube just inside his stomach. CT scan of the abdomen and pelvis was also reviewed and it shows the fluid-filled stomach all the way through the small bowel until you reach the flako at the anastomosis in the right lower quadrant. The small bowel next to the anastomosis is quite thickened, but the bowel distal to the flako is quite decompressed. ASSESSMENT AND PLAN: Estephania is a 39-year-old gentleman, who has a persistent recurring anastomotic high-grade partial small-bowel obstruction. At this point, he has been admitted and NG tube placed. I think we will go ahead and start him on some Rocephin and Flagyl. I had a long discussion with Estephania and he is a very thoughtful, inquisitive gentleman. He has Electronically Signed By: CAMERON TONG MD 02/18/19 0553 PATIENT NAME: ESTEPHANIA MERCHANT CONSULTATION DATE OF : 80 REPORT #: [id number] PHYSICIAN: CAMERON TONG MD PCP: KYLEIGH COE REPORT IS CONFIDENTIAL AND NOT TO BE RELEASED WITHOUT AUTHORIZATION [facility] [address], [place] [address] Signed talked to so many doctors, now it is a little confusing to him. He wondered if the end-to-end anastomosis might be better than a pwsi-by-iskb anastomosis. He was thinking maybe sutures were better than flako. However, the bowel is dilated and there is going to be a size discrepancy. It might be better to do a [id number]-sd-[id number] anastomosis "that can be hand-sewn as well." We really do not know until we can assess that intraoperatively. At this point, we are going to keep his NG tube in and we will increase IV fluids overnight, we will reassess him in the morning. He has not had time yet to call his father apparently. He realizes that this is a recurring troubling issue, he really needs to have something done. He has expressed understanding and agrees to above plan. Cameron Tong MD ALB/ALESSANDRAL /[id number] cc: MD Kyleigh Lovell FNP Copies: CAMERON TONG MD, DANA FNP ~ Electronically Signed By: CAMERON TONG MD 02/18/19 0553 PATIENT NAME: ESTEPHANIA MERCHANT MATTHIEU CONSULTATION DATE OF : 80 REPORT #: [id number] PHYSICIAN: CAMERON TONG MD PCP: KYLEIGH COE REPORT IS CONFIDENTIAL AND NOT TO BE RELEASED WITHOUT AUTHORIZATION
--- NOTE | 2019-02-18 06:32 | NUR ---
pt RESTED A LITTLE DURING SHIFT. NG TUBE TO LOW WALL INTERMITTENT SUCTION, REQUIRED FLUSHING. ADVANCED PER ORDERS. pt DENIED PASSING GAS DURING SHIFT. PAIN CONTROLLED WITH PRN MEDS. IVF INFUSING. VOIDED IN URINAL. NPO. USES CALL LIGHT APPROPRIATELY.
--- NOTE | 2019-02-18 07:15 | NUR ---
REPORT RECEIVED, ORDERS ACKNOWLEDGED. PATIENT SLEEPING IN BED, ROUSES TO VOICE. DENIES ANY NEEDS AT THIS TIME, CALL LIGHT WITHIN REACH.
--- NOTE | 2019-02-18 07:45 | NUR ---
UPDATE ON PATIENTS CONDITION GIVEN TO PATIENTS FATHER, WITH PATIENT APPROVAL. FATHER STATED "YOU PEOPLE AREN'T TAKING MY SON TO SURGERY DRUGGED UP WITHOUT HIM SEEING THE A1, TOP DOLLAR GI SURGEON DR. ROMERO. I EXPECT TO BE KEPT UP TO DATE ON ANYTHING THAT HAPPENS WITH MY SON TODAY." CHARGE NURSE NOTIFIED. PLAN TO DISCUSS IN MEETING.
--- NOTE | 2019-02-18 08:00 | NUR ---
PATIENTS MOTHER CALLED AND UPDATE IS GIVEN TO HER, WITH PATIENT APPROVAL. CALL IS TRANSFERRED TO ROOM FOR PATIENT AND MOTHER TO TALK.
--- NOTE | 2019-02-18 09:00 | NUR ---
PATIENT LAYING IN BED, WITH EYES CLOSED, AROUSES TO VOICE. ASSESSMENT COMPLETE. HYPOACTIVE BOWEL TONES, DISTENSION NOTED, TENDERNESS NOTED ON PALPATION. D5LR RUNNING AT 150 MLS/HR. AM MEDICATIONS GIVEN. NO FURTHER NEEDS AT THIS TIME, CALL LIGHT WITHIN REACH.
--- NOTE | 2019-02-18 09:15 | NUR ---
PATIENT REPORTS PAIN OF 4/10, PRN PAIN MEDICATION GIVEN.
--- NOTE | 2019-02-18 11:30 | NUR ---
PATIENT REPORTS PAIN, PRN PAIN MEDICATION GIVEN
--- NOTE | 2019-02-18 13:13 | NUR ---
PATIENT REPORTS PAIN OF 5/10, PRN PAIN MEDICATION PROVIDED. DENIES NAUSEA. PATIENT LAYING ON LEFT SIDE IN BED. D5LR RUNNING AT 150 MLS/HR. NG TUBE CONNECTED TO LIWS, CONTINUES DRAINING GASTRIC CONTENTS. NO FURTHER NEEDS AT THIS TIME, CALL LIGHT WITHIN REACH.
--- NOTE | 2019-02-18 14:46 | NUR ---
PATIENT REPORTS PAIN OF 4/10, PRN PAIN MEDICATION GIVEN.
--- NOTE | 2019-02-18 16:35 | NUR ---
CALL LIGHT ANSWERED. PATIENT RESTING IN BED. PATIENT ASKS FOR PAIN MEDICATION. RN NOTIFIED. CALL LIGHT WITHIN REACH. NO OTHER NEEDS AT THIS TIME
--- NOTE | 2019-02-18 16:45 | NUR ---
PATIENT REPORTS PAIN OF 6/10. IV DILAUDID AND IV TORADOL ARE GIVEN. PATIENT REPORTS NAUSEA, 8MG OF ZOFRAN ARE GIVEN. PATIENT IS LAYING ON HIS LEFT SIDE. NG TUBE IS IN PLACE RUNNING ON LIWS. NG TUBE IRRIGATION IS PERFORMED. DENIES FURTHER NEEDS AT THIS TIME, CALL LIGHT WITHIN REACH.
--- NOTE | 2019-02-18 18:37 | NUR ---
EVERY TIME I CHECKED ON PATIENT IS WAS SLEEPING. INDEPENDENT.
--- NOTE | 2019-02-18 19:07 | NUR ---
RECEIVED REPORT FROM AJ AGUIRRE. pt ON PHONE, REPORT DONE IN THE [facility]. WHITEBOARD UPDATED. CALL LIGHT WITHIN REACH.
--- NOTE | 2019-02-18 19:55 | NUR ---
DISCUSSED PAIN MANAGEMENT AND PLAN FOR THE SHIFT. PRN PAIN MED GIVEN FOR 4/10 PAIN. ENCOURAGED AMBULATION. pt WILL CALL WHEN READY TO AMBULATE. CALL LIGHT WITHIN REACH. ASSESSMENT DONE.
--- NOTE | 2019-02-18 21:00 | NUR ---
CONSENT SIGNED. QUESTIONS ANSWERED. FLUSHED NG TUBE LIS. PAIN 07/21. DISCUSSED MANAGEMENT OF PAIN AND EDUCATED ON IMPORTANCE OF AMBULATION. CALL LIGHT WITHIN REACH
--- NOTE | 2019-02-18 21:17 | NUR ---
SBA PT TO WALK THE MED/SURG OSUNA, PT COMPLETED 7 LAPS, LET PT SIT AT BEDSIDE TO TAKE A BREAK
--- NOTE | 2019-02-18 21:19 | NUR ---
CLINICAL INSTRUCTOR ROUNDING NOTE. PT SITTING AT EDGE OF BED, PRIMARY RN AT BEDSIDE. PT DENIES QUESTIONS OR CONCERNS. WHITE BOARD UPDATED. CALL LIGHT IN REACH. PRIMARY RN REMAINS AT BEDSIDE.
--- NOTE | 2019-02-18 23:30 | NUR ---
ROUNDED ON pt. REPORTED 4/10 PAIN AND REQUESTED PRN PAIN MED. GIVEN (SEE MAR). EDUCATED ON PAIN MANAGEMENT, WILL RETURN AT 0100 TO ASSESS PAIN. SUCTION CONTAINER CHANGED. URINAL EMPTIED. CALL LIGHT WITHIN REACH.
--- NOTE | 2019-02-19 01:10 | NUR ---
ROUNDED ON pt. PRN PAIN MEDS GIVEN (SEE MAR). DISCUSSED PAIN MANAGMENT. WILL WAKE pt IN 2 HOURS IF HE HAS NOT CALLED FOR PAIN MEDICATION. CALL LIGHT WITHIN REACH.
--- NOTE | 2019-02-19 02:12 | NUR ---
ROUNDED ON pt. RESTING WITH EYES CLOSED, RESPIRATIONS REGULAR AND UNLABORED. CALL LIGHT WITHIN REACH.
--- NOTE | 2019-02-19 03:34 | NUR ---
ROUNDED ON pt. REPORTED 3/10 PAIN. REFUSED PAIN MEDICATION AT THIS TIME. UP TO TOILET, DID NOT PASS GAS. AMBULATED 4 LAPS AROUND UNIT. IN BED. NG TO LIS. NO REQUESTS AT THIS TIME. CALL LIGHT WITHIN REACH.
--- NOTE | 2019-02-19 04:57 | NUR ---
ROUNDED ON pt. RESTING WITH EYES CLOSED, WOKE QUICKLY TO VOICE. pt RATED PAIN 3/10. REQUESTED PRN PAIN MEDS GIVEN SEE MAR. pt REPORTED PASSING GAS. WILL WAKE IN 2 HOURS FOR PAIN MANAGEMENT UNLESS HE CALLS. CALL LIGHT WITHIN REACH.
--- NOTE | 2019-02-19 06:26 | NUR ---
ROUNDED ON pt. RESTING WITH EYES CLOSED. RESPIRATIONS REGULAR AND UNLABORED. CALL LIGHT WITHIN REACH.
--- NOTE | 2019-02-19 07:15 | NUR ---
Patient laying in bed, rouses to voice. Report received, orders acknowledged. NG tube connected to LIWS, draining dark brown output. Discussed pain management with patient. POC discussed, patient verbalizes understanding. No further needs at this time, call light within reach.
--- NOTE | 2019-02-19 09:30 | NUR ---
Patient took hibiclens shower, able to ambulate independently in room. NG tube reconnected to LIWS. D5LR running at 150 mls/hr. AM medications given. Patient states "I am anxious about my post-op pain management plan." Pain management is discussed with patient. Hypoactive bowel tones, tenderness to palpation. Patient is passing gas. Denies further needs at this time, call light within reach.
--- NOTE | 2019-02-19 11:45 | NUR ---
Patient left unit via hospital bed to the OR.
--- NOTE | 2019-02-19 14:56 | NUR ---
02/19/19 1456 Nadine John 1446: PT ARRIVES TO PACU WITH EYES CLOSED, RESP EVEN AND UNLABORED. PT HAS O2 MASK IN PLACE WITH 6L, SATS ABOVE 94%. PT DOES NOT AROUSE WITH VERBAL STIMULATION. PT HAS ABRASION ON RIGHT TIP OF NOSE FROM NG TUBE. 1452: OXYGEN REMOVED, PT ABLE TO MAINTAIN SATS ABOVE 94% ON RA. PT OPENS EYES WITH TACTILE AND VERBAL STIMULATION. ABLE TO STATE "A LITTLE" WHEN ASKED ABOUT PAIN. NO NAUSEA NOTED.
--- NOTE | 2019-02-19 15:16 | CONS ---
[facility] [address], [place] [address] Signed DATE OF CONSULTATION: TIME: 8:30 p.m. CONSULTING PHYSICIAN: Tae Romero MD and assuming care. ISSUE: Recurrent small bowel obstruction. 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 He is known to me from the past having undergone an admission to the hospital for small bowel obstruction (recurrent) last summer. His bowel obstruction resolved with conservative measures including nasogastric tube decompression. I had offered operation to remedy the obstruction as it was recurrent and likely related to an anastomosis of the ileum. The patient in 2005 had abdominal pain and underwent capsule endoscopy in [place] in 2006. The capsule was caught in a Meckel diverticulum. He underwent laparoscopic resection at the [facility], but had persistent problems with abdominal pain. In 2007, he underwent laparoscopy with evaluation and lysis of adhesions, but no revision of the anastomosis. He has had recurrent bouts of small-bowel obstruction with ongoing high-grade partial obstruction generally associated with the area of the anastomosis. I had recently seen him as he wished to have definitive treatment of the problem and a small-bowel follow-through was scheduled for the of this month anticipating surgery in March per his schedule. Unfortunately, he returned with yet again a bowel obstruction on February 17, 2019. He was well managed by Dr. Tong included nasogastric tube decompression, IV fluid resuscitation and so forth. The patient wishes to transfer his care to my services as I am familiar with his case and a plan of operation had been put in place already. PAST MEDICAL HISTORY: His past medical history does include right ankle fracture in 2009 including operative management. SOCIAL HISTORY: He is single and has no children. 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 He lives in [place]. He gets much of his medical care from the [place]. REVIEW OF SYSTEMS: He currently denies any shortness of breath or chest pain. His abdominal pain is much Electronically Signed By: TAE ROMERO MD 02/19/19 1516 PATIENT NAME: ESTEPHANIA MERCHANT CONSULTATION DATE OF : 80 REPORT #: [id number] PHYSICIAN: TAE ROMERO MD PCP: LILY GARZA REPORT IS CONFIDENTIAL AND NOT TO BE RELEASED WITHOUT AUTHORIZATION [address] [address] Signed improved since admission. He has a nasogastric tube in place draining enteric fluid well. PHYSICAL EXAMINATION: GENERAL: Well-developed, well-nourished, white man, who looks to be in no acute distress at this time. VITAL SIGNS: Temperature is 98.5, pulse 66, blood pressure 118/58, and O2 saturation is 93% on room air. NECK: Shows no thyromegaly or cervical adenopathy. CHEST: Shows normal respiratory excursion. Pulses regular. ABDOMEN: Nondistended and soft. There is mild tenderness to the right of the midline cephalad to McBurney point. EXTREMITIES: Show no clubbing, cyanosis, or edema. MEDICATIONS: Reviewed. Currently on Toradol, IV Dilaudid, IV Tylenol, enoxaparin, pantoprazole, Phenergan, and Zofran. DIAGNOSTIC DATA: CT scan at admission showed a markedly dilated stomach. Normal liver, spleen, and kidneys. Bowel obstruction is noted in the region of radiodense material presumably stapled from prior Meckel's diverticular resection. There was distal decompression. ASSESSMENT AND PLAN: The patient has yet again suffered a bowel obstruction likely related to the anastomosis. I suspect the anastomosis has developed a stricture as the initial operation was a laparoscopic wound with multiple flako. The lumen may simply not be enough to accommodate proximal inflow. I will plan for him to undergo laparoscopy tomorrow. We will assess the transition site for the obstruction. If possible, will deliver into the outside of the abdomen and likely resect the anastomotic area and re-anastomose. Anastomosis would likely be more functional in an end-to-end configuration if possible. The [id number] anastomosis may be required. It depends on the lumen distally and health of the bowel proximally. There may be other causes of obstruction, but I think it is unlikely. The risks of the operation were reviewed with the patient once again. He understands and wishes to proceed. We will plan to do this tomorrow in a day time. MD DEREK Carrillo/AIDAN Electronically Signed By: TAE ROMERO MD 02/19/19 1516 PATIENT NAME: ESTEPHANIA MERCHANT CONSULTATION DATE OF : 80 REPORT #: [id number] PHYSICIAN: TAE ROMERO MD PCP: LILY GARZA REPORT IS CONFIDENTIAL AND NOT TO BE RELEASED WITHOUT AUTHORIZATION [address] [address] Signed /[id number] cc: Cameron Tong MD Copies: CAMERON TONG MD ~ Electronically Signed By: TAE ROMERO MD 02/19/19 1516 PATIENT NAME: ESTEPHANIA MERCHANT CONSULTATION DATE OF : 80 REPORT #: [id number] PHYSICIAN: TAE ROMERO MD PCP: LILY GARZA REPORT IS CONFIDENTIAL AND NOT TO BE RELEASED WITHOUT AUTHORIZATION
--- NOTE | 2019-02-19 16:30 | NUR ---
Patient returned to unit via hospital bed, report received. Patient drowsy but responds to voice. D5LR running at 100 mls/hr, IV abx running at 200 mls/hr. Vital signs taken, assessment complete. Abdomen is distended with hypoactive bowel tones. Midline incision is covered with dressing, which is C/D/I. Patient reports tenderness with palpation. Spo2 of 96% on 1LNC. Patient reports feeling "very warm," blankets are removed. Pain of 8/10 reported. Patient dozing off and on during assessment. Call light within reach.
--- NOTE | 2019-02-19 16:57 | NUR ---
PATIENT TOOK A HIBACLEMS SHOWER THIS MORNING. ALSO CHANGED HIS BED LINENS.
--- NOTE | 2019-02-19 17:39 | NUR ---
Patient sleeping in bed with D5LR running at 100 mls/hr. Vital signs taken, assessment complete. Dressing over midline incision is C/D/I. Hypoactive bowel tones and distension are noted. Tenderness to palpation. Spo2 of 94% on RA. Patient reports pain is "all right." IV abx finished infusing. Denies further needs at this time, call light within reach.
--- NOTE | 2019-02-19 18:45 | NUR ---
VITAL SIGNS TAKEN AND STABLE. SBA TO BATHROOM. VOIDED 450 ML. PAIN 6/10 MEDICATED WITH 0.5MG IV DILAUDID. 15 MINUTE ASSESMENT REVIELED 3/10 PAIN TOLERABLE. PT WILLING TO AMBULATE IN HALLS. SBA WITH FWW USED. 1 LAP COMPLETED. MIDLINE STILL C/D/I. PT ASSISTED BACK TO BED. CALL LIGHT IN REACH. CPOX IN PLACE. ICE WATER PROVED. DENEIS NAUSEA.
--- NOTE | 2019-02-19 19:20 | NUR ---
RECEIVED REPORT FROM AJ AGUIRRE. pt REPORTED 4/10 PAIN AND REQUESTED "SOMETHING TO TAKE THE EDGE OFF" EDUCATED ABOUT PAIN MANAGEMENT. RETURNED WITH PAIN MEDICATION, GIVEN SEE MAR. pt TOOK PHONE CALL. CALL LIGHT WITHIN REACH.
--- NOTE | 2019-02-19 20:25 | NUR ---
WOOD TYPE CUTTER ROUNDING NOTE. PT RESTING IN BED WITH EYES CLOSED, APPEARS TO BE SLEEPING. CALL LIGHT IN REACH. WHITE BOARD UPDATED.
--- NOTE | 2019-02-19 20:38 | NUR ---
ROUNDED ON pt. RESTING WITH EYES CLOSED, RESPIRATIONS REGULAR AND UNLABORED. CALL LIGHT WITHIN REACH.
--- NOTE | 2019-02-19 21:29 | NUR ---
CALL LIGHT ON. DISCUSSED PAIN MANAGEMENT AND MADE A PLAN FOR PAIN CONTROL. pt WILLING TO TRY JELLO, EDUCATED ABOUT GOING SLOW. PRN PAIN MED WITH SCHEDULED MEDS (SEE JUN). pt WILL CALL WHEN READY TO AMBULATE. ASSESSMENT DONE. BOWEL TONES ACTIVE. PAIN 07/21. CALL LIGHT WITHIN REACH.
--- NOTE | 2019-02-19 21:38 | NUR ---
pt CALLED FOR ASSISTANCE AMBULATING, PHYSICIAN ASSISTANT CERTIFIED IN ROOM.
--- NOTE | 2019-02-19 21:39 | OR ---
[facility] [address], [place] [address] Signed DATE OF OPERATION: 02/19/2019 SURGEON: Tae Romero MD PREOPERATIVE DIAGNOSIS: Chronic recurrent small bowel obstruction and prior ileoileostomy (bowel anastomosis). POSTOPERATIVE DIAGNOSIS: Chronic recurrent small bowel obstruction and prior ileoileostomy (bowel anastomosis). PROCEDURES: 1. Laparoscopy. 2. Laparoscopic-assisted small bowel resection with end-to-end hand-sewn ileoileostomy. ANESTHESIA: General endotracheal; Leatha Dyer CRNA, and preoperative TAP block. 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 More than 10 years ago, he was having abdominal symptoms and underwent a PillCam evaluation. The PillCam became lodged in the Meckel's diverticulum. At the [facility], he underwent diverticulectomy with segmental bowel resection and presumed [id number] ileoileostomy. He had problems ever since that time. He underwent a laparoscopic evaluation within a year for abdominal pain and was found to have minimal adhesions. Since that time, he has had episodic small-bowel obstruction. I saw him this past summer, for bowel obstruction, which passed with non-operative method, so I had recommended surgery be performed. [facility] However, there was no capacity [facility] for [facility] to have it. By the time it was approved, his symptoms had resolved. He has had recurrent minor bouts of abdominal pain and I saw him as an outpatient in the past two months, anticipating a small-bowel study in February with planned resection of the anastomotic area, which appears to be the source of his obstructive process. He was admitted by Dr. Esparza for small-bowel obstruction once again on February 17, 2019. A CT scan was performed, which showed obstruction at the area of anastomosis previously performed. He has been treated with IV fluids, nasogastric tube decompression, and so forth. The patient prefers to stay with the plan I had outlined previously and care was transferred to me from Dr. Esparza yesterday. The patient understands the risks of operation, which is to include segmental resection Electronically Signed By: TAE ROMERO MD 02/19/19 2139 PATIENT NAME: ESTEPHANIA MERCHANT OPERATIVE REPORT DATE OF : 80 REPORT #: [id number] PHYSICIAN: TAE ROMERO MD PCP: LILY GARZA REPORT IS CONFIDENTIAL AND NOT TO BE RELEASED WITHOUT AUTHORIZATION [facility] [address], [place] [address] Signed of the bowel with likely end-to-end anastomosis. A laparoscopic-assisted approach is anticipated to minimize his incision if feasible. He understands risks of bleeding, infection, anastomotic problems, and other unforeseen complications and wished to proceed. FINDINGS: Laparoscopy was performed without complication. The area of the anastomosis was well identified and appeared to have a proximal dilated portion and distal decompressed and associated with the anastomosis. Some adhesive changes were noted of the anastomosis to the mesentery and the mesentery corresponding to the anastomosis was rather thickened and chronically inflamed as would be expected. The segment of bowel was able to be delivered outside of the abdomen after localizing with a laparoscopic approach allowing for segmental resection of the offending anastomosis with an end-to-end enteroenterostomy accomplished with hand-sewn technique without problem. Opening of the specimen showed the anastomosis to be patent though rather small. A [id number]-us-[id number] configuration as expected was noted. DESCRIPTION OF PROCEDURE: The patient was brought to the operating room, given a general endotracheal anesthetic. Preoperative antibiotic cefoxitin was given. Sequential compression device stockings used and Lovenox has been administered during course of hospitalization. A Ignacio catheter was placed. With ultrasound guidance, the academy education director performed a TAP block bilaterally. The abdomen was clipped and prepared with chlorhexidine solution and draped sterilely. An infraumbilical incision was made and using an open Ariane cannula technique, pneumoperitoneum was achieved to a level of 14 mmHg of carbon dioxide gas. The previous laparoscopic incision was supraumbilical one of note. Pneumoperitoneum was achieved to a level of 14 mmHg and intraabdominal inspection showed no sign of ascites or carcinomatosis. The liver and gallbladder appeared normal. There was some dilated bowel, but was not excessively inflamed. An epigastric 12 mm port was placed and cannula replaced to that site. In the right lower quadrant, 5 mm port was then placed. With two-hand manipulation, the small bowel was examined. The cecum was examined and found to be normal and the decompressed terminal ileum then grasped and walked in a retrograde fashion, ultimately identifying the anastomosis. As suspected, though not previously verified, it appeared there was a kmaa-pm-chim stapled enteroenterostomy from the past. One of the limbs appeared longer than the other and provided some scarring up to the base of the mesentery to a degree. Proximal dilation and distal decompression were noted. Through the right lower quadrant port, a Endo Kekaha was applied to the area so as to allow for delivery to the umbilical area and extraction for resection and anastomosis. Pneumoperitoneum was relieved and the infraumbilical trocar removed. The incision was extended several centimeters and later extended more as he did have thick muscle layer. With gentle manipulation, the anastomosis with small bowel could be explanted from the Electronically Signed By: TAE ROMERO MD 02/19/19 5992 PATIENT NAME: ESTEPHANIA MERCHANT OPERATIVE REPORT DATE OF : 80 REPORT #: [id number] PHYSICIAN: TAE ROMERO MD PCP: LILY GARZA REPORT IS CONFIDENTIAL AND NOT TO BE RELEASED WITHOUT AUTHORIZATION [facility] [address], [place] [address] Signed abdomen. The mesentery to the area was scored to allow for mobility a bit more and the mesentery was noted to be markedly thickened. Careful inspection showed the anastomosis to be as suspected with dense scarring and so on. The mesentery corresponding to the anastomosis was scored and application of hemostats and tonsil clamps to the blood vessels undertaken. Congestion and thickening of the mesentery provided some challenge and hemostatic control initially, but it was accomplished predominantly using 2-0 silk sutures and 0 silk ties as appropriate. Once the mesentery to the area of the anastomosis was fully freed, a LORETO stapling device was used to transect the small bowel limbs proximally and distally. This segment was passed off the table and opened by myself showing a patent anastomosis from the past, but scarring to be sure. Upon opening of the specimen, a fair amount of bloody watery fluid was noted within the lumen. Plans were then made for anastomosis. An end-to-end enteroenterostomy was accomplished using a two-layer technique of interrupted 3-0 silk suture for the serosal layer and interrupted 3-0 Vicryl for the mucosal layer. Excellent patency to the anastomosis was noted. Mesenteric defect was secured with interrupted 3-0 silk. Notably, there was some bloody fluid within the proximal limb of the small bowel. The bowel was milked a bit to see that this was not a persistent finding. He is not known to have had GI bleeding. The nasogastric tube that was in place showed no untoward blood, though there was some small amount of blood within it noted yesterday. The nasogastric tube was removed. Irrigation was undertaken and photographs taken. The bowel returned to the abdominal cavity. The infraumbilical fascial incision was reapproximated partially with running PDS suture and the laparoscope replaced to the site allowing for pneumoperitoneum and examination of the epigastric port. The epigastric port was removed under direct visualization showing no sign of ongoing bleeding. The right lower quadrant port was similarly hemostatic. The midline fascia was completed and its closure and irrigation undertaken in all the wounds. The skin was closed with running subcuticular 3-0 Vicryl in the infraumbilical incision and with interrupted 2-0 Vicryl in the epigastric and right lower quadrant port. Steri-Strips were applied. Blood loss was about 100 mL at the most. Sponge, needle, and instrument counts reported as correct x3. MD DEREK Carrillo/AIDAN Electronically Signed By: TAE ROMERO MD 02/19/19 2139 PATIENT NAME: ESTEPHANIA MERCHANT OPERATIVE REPORT DATE OF : 80 REPORT #: [id number] PHYSICIAN: TAE ROMERO MD PCP: LILY GARZA REPORT IS CONFIDENTIAL AND NOT TO BE RELEASED WITHOUT AUTHORIZATION [address] [address] Signed /[id number] cc: ADELA Roldan MD Copies: LILY GARZA ANDREW L MD ~ Electronically Signed By: TAE ROMERO MD 02/19/19 2139 PATIENT NAME: ESTEPHANIA MERCHANT OPERATIVE REPORT DATE OF : 80 REPORT #: [id number] PHYSICIAN: TAE ROMERO MD PCP: LILY GARZA REPORT IS CONFIDENTIAL AND NOT TO BE RELEASED WITHOUT AUTHORIZATION
--- NOTE | 2019-02-19 22:00 | NUR ---
SBA C/ FWW PT TO TOILET, THEN ASST PT C/ FWW TO WALK THE MED/SURG OSUNA, PT MADE 3 LAPS AROUND, ASST PT BK INTO BED, IQUIRED IF PT NEEDED ANYTHING ELSE, LEFT PT TO REST C/ BS TABLE AND CALL LIGHT IN REACH,
--- NOTE | 2019-02-19 22:20 | NUR ---
ROUNDED ON pt. pt REPORTED 4/10 PAIN. REPORTED THAT HE HAD FINISHED JELLO. DENIES NAUSEA. PRN TABLET GIVEN WITH PRN IV MED PER REQUEST (SEE MAR). WILL CONTINUE TO MONITOR. CALL LIGHT WITHIN REACH.
--- NOTE | 2019-02-19 22:45 | NUR ---
V/S AND I&O TAKEN AND CHARTED.
--- NOTE | 2019-02-19 23:37 | NUR ---
ROUNDED ON pt. RESTING WITH EYES CLOSED, RESPIRATIONS REGULAR AND UNLABORED. WOKE TO VOICE AFTER 2 ATTEMPTS. pt REPORTED 4/10 PAIN. PRN PAIN MEDS GIVEN (SEE MAR). NO FURTHER REQUESTS AT THIS TIME. CALL LIGHT WITHIN REACH.
--- NOTE | 2019-02-20 01:00 | NUR ---
ROUNDED ON pt. REPORTED 5/10 PAIN. pt STATED "IT MIGHT BE GAS" ENCOURAGED AMBULATION, 4 LAPS AROUND UNIT SBA. pt DENIED PASSING GAS AND DID NOT HAVE ANY RELIEF FROM SYMPTOMS. pt REQUESTED PRN IV MEDICATION FOR PAIN, GIVEN (SEE MAR). pt RESTING IN BED. NO FURTHER REQUESTS AT THIS TIME. CALL LIGHT WITHIN REACH.
--- NOTE | 2019-02-20 02:00 | NUR ---
ROUNDED ON pt. RESTING WITH EYES CLOSED, RESPIRATIONS REGULAR AND UNLABORED. CALL LIGHT WITHIN REACH.
--- NOTE | 2019-02-20 03:15 | NUR ---
WOKE pt. pt REQUESTED ASSISTANCE TO TOILET, VOIDED. BACK TO BED. REQUESTED 1MG DILAUDID FOR 3/10 PAIN, EDUCATED ON PAIN MANAGEMENT, PRN MED GIVEN (SEE MAR). ASSESSMENT DONE. WATER PROVIDED. NO FURTHER REQUESTS AT THIS TIME. CALL LIGHT WITHIN REACH.
--- NOTE | 2019-02-20 04:22 | NUR ---
ROUNDED ON pt. RESTING WITH EYES CLOSED, RESPIRATIONS REGULAR AND UNLABORED. CALL LIGHT WITHIN REACH.
--- NOTE | 2019-02-20 04:59 | NUR ---
pt RESTED OCCASSIONALLY DURING SHIFT. AMBULATED X2 WITH MULTIPLE LAPS AROUND NURSES STATION. PASSING GAS. PAIN CONTROL REQUIRED FREQUENT ADMINISTRATION OF IV AND PO MEDS. DRESSINGS CDI. HAS DENIED NAUSEA THROUGHOUT SHIFT. TOLERATING SMALL AMOUNTS OF CLEAR LIQUIDS. ACTIVE BOWEL TONES. USES CALL LIGHT APPROPRIATELY.
--- NOTE | 2019-02-20 05:30 | NUR ---
WOKE pt FOR PO PAIN MEDS. pt REPORTED 2/10 PAIN. VITALS DONE. NO REQUESTS AT THIS TIME. CALL LIGHT WITHIN REACH.
--- NOTE | 2019-02-20 07:15 | NUR ---
Report received, orders acknowledged. Patient sleeping in bed with call light within reach. D5LR running at 100 mls/hr.
--- NOTE | 2019-02-20 07:30 | NUR ---
Patient reports pain of 4/10, PRN pain medication given (see MAR). New bag of D5LR hung at 100 mls/hr. Ice pack provided for midline incision pain, water refreshed. Patient sleeping in bed with call light within reach. Denies further needs.
--- NOTE | 2019-02-20 09:30 | NUR ---
Patient laying in bed with eyes closed, arouses to voice. AM medications given, assessment complete. Dressing on midline is C/D/I. Hypoactive bowel tones, with moderate distension noted. Heat pack is provided. D5LR running at 100 mls/hr. Reports pain of 4/10, pain management plan is discussed. Denies further needs at this time, call light within reach.
--- NOTE | 2019-02-20 11:06 | NUR ---
Patient laying in bed on right side, states "I'm trying to find the most comfortable position, this helps." Reports pain of 2/10. D5LR running at 100 mls/hr. Call light within reach.
--- NOTE | 2019-02-20 11:10 | NUR ---
Dr. Aguilar in room with patient. Reports pain of 2/10. Plan to continue with clear liquids for the day per patient request, plan to advance diet tomorrow. No further needs at this time, call light within reach.
--- NOTE | 2019-02-20 11:22 | NUR ---
O900 THIS MORNING ANSWERED PATIENT'S CALL LIGHT. HELPED PATIENT TO THE BATHROOM. CHANGED LINENS. HE AND I WALKED 2 LAPS AROUND MED SURG. PATIENT LAYING IN BED WITH SCDS ON.
--- NOTE | 2019-02-20 12:00 | NUR ---
PATIENT AND I WALKED 7 LAPS AROUND MED SURG.
--- NOTE | 2019-02-20 13:15 | NUR ---
Patient reports pain of 6/10, pain medication given (see MAR). Family in room visiting. Ice pack remains on abdomen. Denies further needs at this time, call light within reach.
--- NOTE | 2019-02-20 15:30 | NUR ---
Patient laying in bed, alert and oriented. Patient denies pain or nausea. D5LR running at 100 mls/hr. No needs at this time, call light within reach.
--- NOTE | 2019-02-20 16:00 | NUR ---
PATIENT AND I WALKED 2 LAPS.
--- NOTE | 2019-02-20 16:30 | NUR ---
Patient ambulated two laps around unit with nursing staff. Denies pain or nausea. Steady gait with FWW and SBA. Returns to bed, denies any needs at this time. Call light within reach.
--- NOTE | 2019-02-20 19:46 | NUR ---
pt c/o 09/20 abd pain, medicated with Dialaudid 1mg IV, abd distended firm, midline Mepilex dressing covered withopsite inplace. Reassured, denies c/o n/v
--- NOTE | 2019-02-20 20:32 | NUR ---
Pt up to br, no further c/o pain stated at this time, voiding QS. required minimum of assist
--- NOTE | 2019-02-20 21:19 | NUR ---
IN BED, MOANING AND GROANING C/O ABD PAIN AND INCREASED ABD DISTENTION. ABD ASSESSED, SOFTER THAN EARLIER IN SHIFT. 2MEPILEX DRESSING COVERED WITH OPSTITE IN PLACE, HYPOACTIVE BOWEL TONES, STATES PASSING GAS SOMETIMES, NOT OFTEN AND 'VERY SMALL FARTS BUT NOT VERY OFTEN SINCE THIS AM". MEDICATED WITH 1MF IV DILAUDID AND 600MG PO MOTRIN. COOP WITH ASSESSMENT. PT GIVEN THE OPTION TO WALK, STATED TO WAIT TIL ABD PAIN WAS LESS. DECLINES WARM PAD AT THIS TINMED IVF INFUSING W/O PROBLEMS. VOIDING LARGE AMOUNT OF YELLOW URINE
--- NOTE | 2019-02-20 21:30 | NUR ---
RESTING, EYES CLOSED, LAYING ON HIS L SIDE. CALL LIGHT AT BEDSIDE, IVF INFUSING
--- NOTE | 2019-02-21 02:38 | NUR ---
Pt ambulating hallways up and down nursing station, c/o 6-10/20 abd pain, not passing gas stated. no c/o n/v. medicated with Dilaudid 1mg IV. abd soft, hea bowel tones, incision covered with meplex dressing and opsite, coop with assessment
--- NOTE | 2019-02-21 03:30 | NUR ---
pt resting, eyes closed, no distress, IVf infusing w/o problems. call light at bedside
--- NOTE | 2019-02-21 04:48 | NUR ---
Pt states he feels slightly better, still c/o abd craping, not passing gas, abd soft, tender, midline incision w Mepilex dressing.Has walked hallways several times, tolerating well. Has been medicated x2 with Dilaudid and with Motrin x1 per abd pain with good pain relief. No c/o n/v, IVf infusing w/o problems, on room air, call light at bedside, Tolerating clear fluids well
--- NOTE | 2019-02-21 07:29 | NUR ---
REPORT RECIEVED FROM AJ HARRIS. PT APPEARS TO BE SLEEPING ON HIS SIDE. REPORTEDLY WALKED SEVERAL TIMES THOUGHOUT NIGHT. 0 FLATUS BUT ACTIVE BT.
--- NOTE | 2019-02-21 08:04 | NUR ---
PATIENT RESTING IN BED, EYES CLOSED, LIGHTS OFF. AM CARE SET UP IN BATHROOM AND AT BEDSIDE FOR PATIENT TO USE AT A LATER TIME. CALL LIGHT IN REACH. NO OTHER NEEDS AT THIS TIME.
--- NOTE | 2019-02-21 08:43 | NUR ---
PT UP TO RESTROOM. TENDER TO TOUCH, BT ACTIVE. + FLATUS NOW. STATES HE FEELS BETTER THAN LAST NIGHT. STATES HE FEELS HE WOULD TOLERATE A FULL LIQ DIET. ADVANCED PER NURSE NOTIFY ORDER. SL. XAVIER. GIVEN TYLENOL TO STAY ON TOP OF PAIN.
--- NOTE | 2019-02-21 10:20 | NUR ---
PATIENT RESTING IN BED, EYES CLOSED. PATIENT STATES HE WOULD LIKE TO SHOWER TODAY. CALL LIGHT IN REACH. NO OTHER NEEDS AT THIS TIME.
--- NOTE | 2019-02-21 11:47 | NUR ---
WENT TO ASK PT ABOUT PAIN AND HE APPEARS TO BE SLEEPING. DID NOT STIR ON KNOCKING.
--- NOTE | 2019-02-21 13:47 | NUR ---
ORDERED LUNCH FOR PT. STATES HE DID NOT SLEEP WELL LAST NIGHT AND IS VERY TIRED TODAY. ADVISED THAT HE NEEDS TO WALK AGAIN THIS AFTERNOON.
--- NOTE | 2019-02-21 14:14 | NUR ---
PT RESTING IN BED, WELCOMED ME IN. HAD GOOD VISIT, PT MENTIONED THAT HIS PAIN IS 1-2. GLAD TO NOT HAVE NG TUBE. PT STATED HE FEELS MUCH BETTER. EXTENDED A BLESSING, THANKED PT FOR HIS SERVICE. WILL FOLLOW NEEDED
--- NOTE | 2019-02-21 14:36 | NUR ---
PT WALKED IN [place] AND STATES THAT HIS PAIN IS OK AND DOES NOT NEED ANYTHING YET. ATE CREAM OF MUSH SOUP FOR LUNCH AND TOLERATED WELL.
--- NOTE | 2019-02-21 17:18 | NUR ---
PATIENT RESTING IN BED, CALL LIGHT IN REACH. PATIENT AMBULATED HALLWAYS EARLIER TODAY AND TOOK A SHOWER. NO OTHER NEEDS AT THIS TIME.
--- NOTE | 2019-02-21 17:20 | NUR ---
PT BACK TO BED AFTER SHOWERING. ORDERED DINNER. STATES HE IS HAVING TOLERABLE PAIN AND SEEMS LIKE THINGS ARE MOVING. +FLATUS. DRESSING PEELED BACK SLIGHTLY AT TOP BUT REMAINS INTACT.
--- NOTE | 2019-02-21 18:01 | NUR ---
PT WALKED SEVERAL TIMES IN [place] TODAY. TOLERATED WELL. SHOWERED. DRESSING CDI. PAIN WELL CONTROLLED WITH TYLENOL. BT ACTIVE. +FLATUS. SL. XAVIER.
--- NOTE | 2019-02-21 19:10 | NUR ---
PT RESTING IN BED. SHIFT REPORT RECIEVED FROM STEPHANIE ROCHA.NO NEEDS AT THIS TIME. CALL LIGHT IN REACH.
--- NOTE | 2019-02-21 22:00 | NUR ---
PT RESTING IN BED, WATCHING TV. SCHEDULED MEDS AND PRN PAIN MED PROVIDED. INCISION, CDI, COVERED WITH FOAM AND STERI-STRIPS. PAIN 5/10 IN ABD. IV CDI, WNL, FLUSHED. PT DECLINES ICE/WARM PACKS AND WARM BLANKETS FOR ABD PAIN. ASSESSMENT COMPLETED. NO OTHER NEEDS AT THIS TIME. CALL LIGHT IN REACH.
--- NOTE | 2019-02-21 22:39 | NUR ---
PT STATES PAIN IS STILL 5/10 IN ABD. PRN PAIN MED PROVIDED. NO OTHER NEEDS. CALL LIGHT IN REACH.
--- NOTE | 2019-02-22 00:30 | NUR ---
PT RESTING IN BED, EYES CLOSED. RR 14, EVEN, UNLABORED. CALL LIGHT IN REACH.
--- NOTE | 2019-02-22 02:30 | NUR ---
PT RESTING IN BED, EYES CLOSED. RR 16, EVEN, UNLABORED. CALL LIGHT IN REACH.
--- NOTE | 2019-02-22 04:32 | NUR ---
PT RESTING IN BED, EYES CLOSED.RR 16, EVEN, UNLABORED. CALL LIGHT IN REACH.
--- NOTE | 2019-02-22 05:13 | NUR ---
PT SLEPT MOST THE SHIFT.PAIN MANAGED WITH PRN PAIN MEDICATIONS. PT TOLERATED FULL LIQUID DIET, SCDs WELL. INCISION AREAS CDI, COVERED. VSS.
--- NOTE | 2019-02-22 06:31 | NUR ---
PT AWAKE IN ROOM. PAIN 04/22. ASSESSMENT COMPLETED. NO OTHER NEEDS AT THIS TIME. CALL LIGHT IN REACH.
--- NOTE | 2019-02-22 06:34 | NUR ---
PT AWAKE IN ROOM. PAIN 04/22. ASSESSMENT COMPLETED. NO OTHER NEEDS AT THIS TIME. CALL LIGHT IN REACH.
--- NOTE | 2019-02-22 08:00 | NUR ---
PATIENT INDEPENDENT UP TO CHAIR. HANDS AND FACE WASHED.FRESH ICE WATER GIVEN. TALKED TO PATIENT ABOUT AMBULATING IN HALLWAY AND SHOWER AFTER BREAKFAST. PATIENT AGREEED. CALL BUTTON IN REACH. NO OTHER NEEDS AT THIS TIME. FRESH LINENS ON BED. TOOTH BRUSH AND TOOTH PASTE SET UP IN BATHROOM FOR USE.
--- NOTE | 2019-02-22 09:26 | NUR ---
PT SITTINGUP IN RECLINER COMPLETED 100% OF BREAKFAST. REPORT PAIN IS TOLERABLE AT THIS TIME, BUT WOULD LIKE THE TYLENOL TO MAINTAIN GOOD PAIN MANAGEMENT FOR AMBULATING
--- NOTE | 2019-02-22 09:54 | NUR ---
TALKED TO SIMBA ROCHACOFFEE ATTENDANT ABOUT PT CONCERNS ABOUT [facility] COVER[facility] STAY AND SURGERY. SIMBA ROCHA SAID SHE WOULD TALK WITH HIM.
--- NOTE | 2019-02-22 10:41 | NUR ---
PT BACK TO HIS ROOM AFTER AMBULATING MULTIPLE LAPS IN HALLS. TOLERATING ACTIVITY WELL
--- NOTE | 2019-02-22 11:20 | NUR ---
PATIENT UP TO SHOWER.
--- NOTE | 2019-02-22 13:40 | NUR ---
PT SITTING UP IN RECLINER COMPLETED 100% OF LUNCH, HE REPORTS NO PAIN OR NAUSEA.
--- NOTE | 2019-02-22 14:39 | NUR ---
Met with pt in room. He states he doing well, planning on discharging to home tomorrow. Will go to his dad's house on [address]. Walking in [place] and is stable will not need DME for dc. Will fill Rx's in town if unable to [facility].
--- NOTE | 2019-02-22 15:27 | NUR ---
PT TOLERATED HOT TURKEY OPEN SANDWICH FOR LUNCH WITH NO PAIN OR NAUSEA, HAS HAD 2 LOOSE BM, IS ORDERING SALMON FOR DINNER.
--- NOTE | 2019-02-22 15:45 | PATH ---
[facility] [address], [place] [address] Signed SPECIMEN(S): A SMALL BOWEL RESECTION SPECIMEN SOURCE: A. SMALL BOWEL RESECTION CLINICAL HISTORY: Small bowel obstruction. FINAL PATHOLOGIC DIAGNOSIS: Small bowel, segmental excision: - Area of anastomosis with full-thickness ulceration and infiltration of large numbers of acute inflammatory cells extending into muscularis. - Focal muscularis fibrosis. - Area of dark brown coloration -- mucosal necrosis, edema of lamina propria with extension of acute inflammation towards but not into muscularis. - Margins of excision with histologically viable appearing mucosa without inflammatory change. - Negative for malignancy and atypia. LJA:cml:C2NR MICROSCOPIC EXAMINATION: Histologic sections of all submitted blocks are examined by light microscopy. These findings, together with the gross examination, support the pathologic diagnosis. GROSS DESCRIPTION: The specimen, labeled "GR, segment of small bowel with anastomotic stricture," is received in formalin and consists of a 13.5 cm in length by 6.3 cm circumference segment of convoluted small bowel with a 1.7 cm thick mesentery. Near the center of the segment of bowel is a sutured anastomosis that narrows the lumen down to 1.5 cm in circumference. The mucosa of the specimen is monahan with regular folds and dark brown eroded areas near the area of anastomosis. No lymph nodes are grossly identified. Cassette summary: (A1) one margin en face (A2) opposite margin en face (A3) area of anastomosis and stricture (A4) mucosa near stricture with dark brown areas of discoloration AM (under the direct supervision of a pathologist) The Gross Description was prepared using a voice recognition system. The PATIENT NAME: ESTEPHANIA MERCHANT PATHOLOGY DATE OF : 80 REPORT #: [id number] PHYSICIAN: PORTIA CAMILO PCP: LILY GARZA REPORT IS CONFIDENTIAL AND NOT TO BE RELEASED WITHOUT AUTHORIZATION [facility] [address] [place] [address] Signed report was reviewed for accuracy; however, sound-alike word errors, addition and/or deletions may occur. If there is any question about this report, please contact Client Services. PERFORMING LABORATORY: The technical component was performed by [facility] [address] (Information Coordinator: Sheree West MD; CLIA# [id number]). Professional interpretation was performed by [facility], [address] [address] (Information Coordinator: Ryan Garcia MD; CLIA# [id number]). Diagnostician: Ryan Garcia MD Pathologist Electronically Signed 02/22/2019 Copies: ~ PATIENT NAME: ESTEPHANIA MERCHANT PATHOLOGY DATE OF : 80 REPORT #: [id number] PHYSICIAN: PORTIA PATHOLOGY PCP: LILY GARZA REPORT IS CONFIDENTIAL AND NOT TO BE RELEASED WITHOUT AUTHORIZATION
--- NOTE | 2019-02-22 16:28 | NUR ---
PT HAS BEEN UP AMBULATING IN HALLS REGULARLY, HE IS TOLERATING REGULAR DIET WELL HAS REPORT PAIN IS WELL MANAGED, TYLENOL 1000MG GIVEN ONCE THIS AM, HE HAS HAD TWO LOOSE BM THIS SHIFT AND HAS ACTIVE BOWEL TONE. DRESSING ON ABDOMEN IS CDI.
--- NOTE | 2019-02-22 16:40 | NUR ---
PT UP AMBULATING IN HALLS AT THIS TIME.
--- NOTE | 2019-02-22 19:15 | NUR ---
PT RESTING IN CHAIR, WATCHING TV. SHIFT REPORT RECIEVED FROM BERLIN ROCHA. NO NEEDS AT THIS TIME. CALL LIGHT IN REACH.
--- NOTE | 2019-02-22 22:19 | NUR ---
ASSESSMENT COMPLETED. BANDAGES CDI, WNL. IV CDI, WNL, FLUSHED WELL. PT STATES PAIN IS 1/10. TOLERATING REGULAR DIET WELL. LUNCH BOX, ICE WATER PROVIDED. SCHEDULED MED PROVIDED. NO OTHER NEEDS. CALL LIGHT IN REACH.
--- NOTE | 2019-02-22 22:20 | NUR ---
IN TO VISIT PT. VERBAL ORDER TO TAKE OUT IV. OK FOR NO IV ACCESS.
--- NOTE | 2019-02-22 22:24 | NUR ---
SANDWICH BOX GIVEN TO PT PER REQUEST.
--- NOTE | 2019-02-22 23:31 | NUR ---
PT RESTING IN BED, EYES CLOSED. RR 12, EVEN, UNLABORED. CALL LIGHT IN REACH.
--- NOTE | 2019-02-23 01:30 | NUR ---
PT RESTING IN BED, EYES CLOSED. RR 12, EVEN, UNLABORED. CALL LIGHT IN REACH.
--- NOTE | 2019-02-23 03:34 | NUR ---
PT RESTING IN BED, EYES CLOSED. RR 12, EVEN, UNLABORED. CALL LIGHT IN REACH.
--- NOTE | 2019-02-23 06:31 | NUR ---
PT WAKES TO VOICE. ASSESSMENT, I&O, VS COMPLETED. PAIN 2/10, PRN PAIN MED PROVIDED. ICE WATER PROVIDED. NO OTHER NEEDS. CALL LIGHT IN REACH.
--- NOTE | 2019-02-23 07:08 | NUR ---
BEDSIDE REPORT RECEIVED FROM LUCA ROCHA. PT RESTING SUPINE IN BED EYES CLOSED AND RESPIRATIONS EVEN AND UNLABORED. CALL LIGHT AND H2O IN REACH.
--- NOTE | 2019-02-23 09:40 | NUR ---
PT RESTING SUPINE IN BED, ALERT AND ORIENTED TYPING ON CELL PHONE. ASSESSMENT COMPLETED. CALL LIGHT AND H2O IN REACH. PT DENIES NEEDS OR CONCERNS.
--- NOTE | 2019-02-23 11:55 | NUR ---
PT UP AMBULATING IN HALLS WITH STEADY GAIT. PT APPEARS TO BE IN NO ACUTE DISTRESS.
[2019-02-23] MEDS ORDERED: TYLENOL EXTRA500 MG PO ×2 (12:16→12:18)
[2019-02-23] MEDS ORDERED: IBUPROFEN600 MG PO (12:17)
--- NOTE | 2019-02-23 12:30 | NUR ---
PT UP AMBULATING IN ROOM STATES "WILL I BE DISCHARGED SOON?" PT EDUCATED THAT THERE ARE SEVERAL OTHER DISCHARGES AHEAD OF HIM AND THAT IT MAY BE SOME TIME BEFORE HIS DISCHARGE PAPERWORK IS READY. PT VERBALIZED UNDERSTANDING AND DENIES FURTHER NEEDS OR CONCERNS.
--- NOTE | 2019-02-23 12:45 | NUR ---
PT SITTING IN CHAIR IN FRONT OF WINDOW-ALERT AND ORIENTED. HE WELCOMED ME, PT WAS ON HIS PHONE. HE TOLD ME HE IS TO BE DC'D LATER THIS PM. EXTENDED A BLESSING, HE MENTIONED THAT HE WAS FEELING MUCH BETTER
--- NOTE | 2019-02-23 12:45 | NUR ---
PT SITTING UP IN CHAIR ALERT AND ORIENTED, ASSESSMENT COMPLETED. CALL LIGHT AND H2O IN REACH. PT DENIES NAUSEA, SOB OR PAIN. DRESSING WAS REMOVED BY DR ROMERO, STERISTRIPS IN PLACE AND SKIN WELL APPROXIMATED. NO FURTHER NEEDS OR CONCERNS VOICED.
--- NOTE | 2019-02-23 14:20 | NUR ---
In and spoke with patient. He is ready to go home. Denies concerns to go home to [facility].
== END 2019-02-23 13:45 | disposition home or self-care (01) | DRG 331 ==
LOC: ED 12:23 → MS 15:59
PROVIDERS: ADMIT Surgery
PROC: 3E0T33Z Introduction of Anti-inflammatory into Peripheral Nerves and Plexi, Percutaneous Approach (ICD-10-PCS; 2019-02-19)
PROC: 0DB80ZZ Excision of Small Intestine, Open Approach (ICD-10-PCS; principal; 2019-02-19 12:00)
PROC: 3E0T3BZ Introduction of Anesthetic Agent into Peripheral Nerves and Plexi, Percutaneous Approach (ICD-10-PCS; 2019-02-19 12:00)
DX: K56.600 Partial intestinal obstruction, unspecified as to cause (principal); G89.18 Other acute postprocedural pain
CPT/HCPCS: 00790; 36415; 64488; 71045; 74177; 76942; 80048; 80053; 83735; 84100; 85025; 88307; 94762; 96361; 99285-25; A9270; C9113; J0131; J0330; J0694; J1100; J1170; J1650; J1885; J2060; J2270; J2405; J2704; J3010; J7030; J7060; J7121; Q9967